=== PATIENT | female | born 1960 | race Hispanic/Latino ===

== ENCOUNTER → 2018-01-04 | Day surgery (SDC) | payer BC ==
[~2018-01-04] MED LIST: AUGMENTIN 500-1 EACH PO; ESTRING1 EACH; FENTANYL CITRATE/PF 100MCG/2 ML INJ ONE; GABAPENTIN300 MG PO; GLYBURIDE2.5 MG PO; HYDROCHLOROTHIA25 MG PO; INVOKANA PO; LEVAQUIN500 MG PO; LISINOPRIL; LISINOPRIL-HCT1 EAC1 PO; LISINOPRIL10 MG PO; METFORMIN HCL500 MG PO; METOPROLOL SUCC25 MG PO; MIDAZOLAM HCL 2 MG/2 ML VIAL ONE; OSPHENA PO; OXYTROL1 EA PO; PROPOFOL IV EMULSION 10 MG/ML 50 ML VIAL ONE; VESICARE5 MG PO; VITAMIN D250000 UNIT PO; ZINC50 MG PO
--- OUTSIDE RECORDS SUMMARY | 2018-04-20 13:29 | XMS REPORT ---
Author Author Rebecca Thorne [facility] eClinicalWorks Address Unknown Phone Unavailable Care Team Providers Care Office Services Manager Name Role Phone Rebecca Thorne Unavailable Allergies, Adverse Reactions, Alerts Substance Reaction Event Type N.K.D.A. Info Not Available Non Drug Allergy Problems Problem Type Condition Code Onset Dates Condition Status Problem Diabetes mellitus with hyperglycemia E11.65 Active Problem Type 2 diabetes mellitus with other diabetic kidney complication E11.29 Active Problem Sleep apnea G47.30 Active Problem BMI 40.0-44.9, adult Z68.41 Active Problem Severe obesity (BMI >=40) E66.01 Active Problem Essential hypertension I10 Active Problem Left wrist pain M25.532 Active Problem Neutrophilic leukocytosis D72.9 Active Problem Diabetic polyneuropathy associated with type 2 diabetes mellitus E11.42 Active Problem Chronic vaginitis N76.1 Active Problem Hyperlipidemia, unspecified E78.5 Active Problem Vitamin D deficiency E55.9 Active Assessment Dysuria R30.0 Active Assessment Right anterior shoulder pain M25.511 Active Problem Esophageal reflux K21.9 Active Problem Depressive disorder, not elsewhere classified F32.9 Active Problem Menopausal and female climacteric states N95.1 Active Problem History of laparoscopic adjustable gastric banding Z98.84 Active Problem Obesity E66.9 Active Problem Microalbuminuria R80.9 Active Medications Medication Code System Code Instructions Start Date End Date Status Dosage Vitamin D (Ergocalciferol) [facility] 08065772244 11578 Orally once per week Jun 04, 2017 Active 1 capsule Metformin HCl [facility] [address]-89 1000 MG Orally Twice a day November 06, 2016 Active 1 tablet with meals Potassium Chloride Gia ER [facility] 90569693535 10 MEQ Oral Active TAKE 1 TABLET BY MOUTH DAILY OneTouch Lancets [facility] [address]-24 0 in vitro use bid dx: 250.00 September Active as directed Gabapentin [facility] [address]-35 600 MG Active TAKE 1 TABLET BY MOUTH 3 TIMES A DAY GlyBURIDE [facility] 88207907875 2.5 MG Oral Active take 1 tablet by mouth 2 times daily (with meals) Ventolin HFA [facility] [address]-00 108 (90 Base) MCG/ACT Inhalation every 4 hrs Jun 18, 2016 Active 2 puffs as needed Lisinopril-Hydrochlorothiazide [facility] [address]-27 20-25 MG Orally twice a day February 03, 2017 Active 1 tablet OneTouch Ultra Test [facility] 0 - Active TEST EVERY DAY Naproxen [facility] [address]-94 500 MG Orally twice a day Feb 22, 2017 Mar 09, 2017 Active 1 tablet as needed Estring [facility] [address]-25 2 MG Vaginal Every 3 months Active 1 ring Osphena [facility] 18491618766 60 MG Oral Active TAKE 1 TABLET BY MOUTH DAILY Zetia [facility] [address]-84 10 MG Orally Once a day November 12, 2016 Active 1 tablet Wellbutrin XL [facility] 48451680275 150 MG Orally Once a day Active 1 tablet in the morning Bydureon [facility] 33035593578 2 MG Subcutaneous once per week Active INJECT 2 MG INTO THE SKIN EVERY 7 DAYS Pantoprazole Sodium [facility] 66802528431 40 MG Oral Active take 1 tablet by mouth every day OneTouch Ultra Test [facility] [address]-96 0 SQ use qd. E65.11 October 08, 2014 Active as directed Vital Signs Date/Time: Feb 22, 2017 BMI 42.28 Index Weight 262 lbs Height 66 in Cardiac Monitoring Heart Rate 77 /min Blood Pressure Diastolic 96 mm Hg Blood Pressure Systolic 142 mm Hg Results Name Result Date Reference Range Unit Abnormality Flag URINE AUTO W/O SCOPE ----Spec [place] 1.015 20170222 ----Turbidity clear 20170222 ----Glucose neg 20170222 ----Ketones trace 20170222 ----Blood neg 20170222 ----Bili small 20170222 ----Color yellow 20170222 ----pH 6.5 20170222 ----Leuk Est neg 20170222 ----Nitrite neg 20170222 ----Urobilinogen 0.2 20170222 ----Protein trace 20170222 Shoulder 2 view - Right Xray Summary Purpose eClinicalWorks Submission
--- OUTSIDE RECORDS SUMMARY | 2018-04-20 13:29 | XMS REPORT ---
Author Basil Gutierres Organization eClinicalWorks Address Unknown Phone Unavailable Care Team Providers Care Cardiac Sonographer Name Role Phone Basil Jean CP Unavailable Allergies, Adverse Reactions, Alerts Substance Reaction Event Type N.K.D.A. Info Not Available Non Drug Allergy Problems Problem Type Condition Code Onset Dates Condition Status Assessment Diabetic polyneuropathy associated with type 2 diabetes mellitus E11.42 Active Assessment Type 2 diabetes mellitus with other diabetic kidney complication E11.29 Active Assessment Neutrophilic leukocytosis D72.9 Active Assessment Sleep apnea G47.30 Active Problem Depressive disorder, not elsewhere classified F32.9 Active Assessment Microalbuminuria R80.9 Active Problem Esophageal reflux K21.9 Active Assessment History of laparoscopic adjustable gastric banding Z98.84 Active Problem History of laparoscopic adjustable gastric banding Z98.84 Active Problem Diabetes mellitus with hyperglycemia E11.65 Active Problem Microalbuminuria R80.9 Active Problem Severe obesity (BMI >=40) E66.01 Active Problem BMI 40.0-44.9, adult Z68.41 Active Assessment Hyperlipidemia, unspecified E78.5 Active Assessment Depressive disorder, not elsewhere classified F32.9 Active Problem Essential hypertension I10 Active Assessment Esophageal reflux K21.9 Active Problem Type 2 diabetes mellitus with other diabetic kidney complication E11.29 Active Problem Neutrophilic leukocytosis D72.9 Active Problem Diabetic polyneuropathy associated with type 2 diabetes mellitus E11.42 Active Problem Left wrist pain M25.532 Active Assessment Screening for colon cancer Z12.11 Active Assessment Screening for breast cancer Z12.39 Active Assessment Vitamin D deficiency E55.9 Active Assessment Diabetes mellitus with hyperglycemia E11.65 Active Problem Vitamin D deficiency E55.9 Active Problem Hyperlipidemia, unspecified E78.5 Active Assessment Encntr for general adult medical exam w/o abnormal findings Z00.00 Active Problem Obesity E66.9 Active Medications Medication Code System Code Instructions Start Date End Date Status Dosage Potassium Chloride Gia ER [facility] 21128127746 10 MEQ Active TAKE 1 TABLET BY MOUTH EVERY DAY Lisinopril-Hydrochlorothiazide [facility] 89512124019 20-25 MG Orally bid October Active 1 tablet Naproxen [facility] 29776552395 500 MG Orally twice a day Active 1 tablet as needed Bromfed DM [facility] 94613415356 30-2-10 MG/5ML Orally every 4-6 hrs Active 10 ml as needed Wellbutrin XL ND 49973286568 150 MG Orally Once a day Active 1 tablet in the morning Gabapentin [facility] 29686544722 600 MG Inactive TAKE 1 TABLET BY MOUTH 3 TIMES A DAY Trulicity 0.75mg ND 0 0.75mg/0.5mL Subcutaneously once a week Aug 12, 2017 Jun 09, 2018 Active 0.75mg/1 pen Estring [facility] 01356540281 2 MG Vaginal Every 3 months Active 1 ring Pantoprazole Sodium [facility] 55794963821 40 MG Oral Active take 1 tablet by mouth every day GlyBURIDE [facility] 88722372657 2.5 MG Oral bid Active take 1 tablet by mouth 2 times daily (with meals) OneTouch Lancets [facility] 80875589862 0 sq use bid dx: E11.65 October 08, 2014 Active as directed Lyrica [facility] 33487144352 50 mg Orally Three times a day November 11, 2017 Active 1 capsule Trulicity [facility] 15199565309 0.75 MG/0.5ML Active INJECT 0.75 MG ONCE A WEEK OneTouch Ultra Test [facility] 0 - Active TEST EVERY DAY Osphena [facility] 93983307146 60 MG Oral Active TAKE 1 TABLET BY MOUTH DAILY Ventolin HFA [facility] 30355539371 108 (90 Base) MCG/ACT Inhalation every 4 hrs Jun 18, 2016 Active 2 puffs as needed Metformin HCl [facility] 49433885828 1000 mg Orally bid September 27, 2017 Active 1 tablet with meals Ergocalciferol [facility] 38094244854 03821 UNIT Orally once per week Jun 09, 2018 Active 1 capsule Zetia [facility] 76452588571 10 MG Orally Once a day November 12, 2016 Active 1 tablet Hydrochlorothiazide [facility] 90641805790 25 MG Active TAKE 1 TABLET BY MOUTH EVERY DAY OneTouch Ultra Test [facility] 96324940071 0 SQ use qd. E65.11 October 08, 2014 Active as directed Vital Signs Date/Time: November 11, 2017 BMI 44.06 Index Weight 273 lbs Height 66 in Temperature 97.7 F Cardiac Monitoring Heart Rate 84 /min Blood Pressure Diastolic 102 mm Hg Blood Pressure Systolic 160 mm Hg Results No Known Results Summary Purpose eClinicalWorks Submission
--- OUTSIDE RECORDS SUMMARY | 2018-04-20 13:29 | XMS REPORT ---
Author Author Rebecca Thorne [facility] eClinicalWorks Address Unknown Phone Unavailable Care Team Providers Care Auricular Detoxification Specialist Name Role Phone Rebecca Thorne Unavailable Allergies, Adverse Reactions, Alerts Substance Reaction Event Type N.K.D.A. Info Not Available Non Drug Allergy Problems Problem Type Condition Code Onset Dates Condition Status Problem Diabetes mellitus with hyperglycemia E11.65 Active Problem Type 2 diabetes mellitus with other diabetic kidney complication E11.29 Active Problem Sleep apnea G47.30 Active Problem BMI 40.0-44.9, adult Z68.41 Active Assessment Left leg swelling M79.89 Active Problem Severe obesity (BMI >=40) E66.01 Active Problem Essential hypertension I10 Active Problem Left wrist pain M25.532 Active Problem Neutrophilic leukocytosis D72.9 Active Problem Diabetic polyneuropathy associated with type 2 diabetes mellitus E11.42 Active Problem Chronic vaginitis N76.1 Active Problem Hyperlipidemia, unspecified E78.5 Active Problem Vitamin D deficiency E55.9 Active Assessment Essential hypertension I10 Active Assessment SOB (shortness of breath) R06.02 Active Problem Esophageal reflux K21.9 Active Problem Depressive disorder, not elsewhere classified F32.9 Active Problem Menopausal and female climacteric states N95.1 Active Problem History of laparoscopic adjustable gastric banding Z98.84 Active Problem Obesity E66.9 Active Problem Microalbuminuria R80.9 Active Medications Medication Code System Code Instructions Start Date End Date Status Dosage Vitamin D (Ergocalciferol) [facility] 23865247654 07416 Orally once per week Jun 04, 2017 Active 1 capsule Osphena [facility] 53069973000 60 MG Oral Active TAKE 1 TABLET BY MOUTH DAILY OneTouch Ultra Test ND 0 - Active TEST EVERY DAY OneTouch Lancets [facility] [address]-43 0 in vitro use bid dx: 250.00 September Active as directed Potassium Chloride Gia ER [facility] 47482143982 10 MEQ Oral Active TAKE 1 TABLET BY MOUTH DAILY Lisinopril [facility] [address]-53 10 MG Inactive TAKE 1 TABLET BY MOUTH EVERY DAY Gabapentin [facility] 74697350629 600 MG Oral Active TAKE 1 TABLET BY MOUTH 3 TIMES DAILY Ventolin HFA [facility] [address]-80 108 (90 Base) MCG/ACT Inhalation every 4 hrs Jun 18, 2016 Active 2 puffs as needed Lisinopril-Hydrochlorothiazide [facility] [address]-48 20-25 MG Orally twice a day February 03, 2017 Active 1 tablet GlyBURIDE [facility] 34230099216 2.5 MG Oral Active take 1 tablet by mouth 2 times daily (with meals) Metformin HCl [facility] [address]-82 1000 MG Orally Twice a day November 06, 2016 Active 1 tablet with meals Estring [facility] [address]-58 2 MG Vaginal Every 3 months Active 1 ring Wellbutrin XL [facility] 78156081515 150 MG Orally Once a day Active 1 tablet in the morning OneTouch Ultra Test [facility] [address]-71 0 SQ use qd. E65.11 October 08, 2014 Active as directed Hydrochlorothiazide [facility] 00320046209 25 MG Inactive TAKE 1 TABLET BY MOUTH EVERY DAY Pantoprazole Sodium [facility] 88060390863 40 MG Oral Active take 1 tablet by mouth every day Bydureon [facility] 25855494624 2 MG Subcutaneous once per week Active INJECT 2 MG INTO THE SKIN EVERY 7 DAYS Zetia [facility] [address]-72 10 MG Orally Once a day November 12, 2016 Active 1 tablet Vital Signs Date/Time: February 03, 2017 BMI 42.77 Index Weight 265 lbs Height 66 in Cardiac Monitoring Heart Rate 76 /min Blood Pressure Diastolic 98 mm Hg Blood Pressure Systolic 162 mm Hg Results Name Result Date Reference Range Unit Abnormality Flag EKG Chest 2 views- Xray Summary Purpose eClinicalWorks Submission
--- OUTSIDE RECORDS SUMMARY | 2018-04-20 13:29 | XMS REPORT ---
Author Author Lynne Becker Organization eClinicalWorks Address Unknown Phone Unavailable Care Team Providers Care Warehouse Person Name Role Phone Lynne Becker CP Unavailable Allergies No Known Allergies Problems Problem Type Condition Code Onset Dates Condition Status Problem Microalbuminuria R80.9 Active Problem Neutrophilic leukocytosis D72.9 Active Problem Sleep apnea G47.30 Active Problem Severe obesity (BMI >=40) E66.01 Active Problem BMI 40.0-44.9, adult Z68.41 Active Problem Essential hypertension I10 Active Problem Left wrist pain M25.532 Active Problem Type 2 diabetes mellitus with other diabetic kidney complication E11.29 Active Problem Diabetic polyneuropathy associated with type 2 diabetes mellitus E11.42 Active Problem Chronic vaginitis N76.1 Active Problem Vitamin D deficiency E55.9 Active Problem Obesity E66.9 Active Problem Esophageal reflux K21.9 Active Problem Depressive disorder, not elsewhere classified F32.9 Active Problem Hyperlipidemia, unspecified E78.5 Active Problem History of laparoscopic adjustable gastric banding Z98.84 Active Problem Menopausal and female climacteric states N95.1 Active Problem Diabetes mellitus with hyperglycemia E11.65 Active Medications Medication Code System Code Instructions Start Date End Date Status Dosage Rosanna [facility] 87418433511 8-90 MG Orally Twice a day May 21, 2017 Aug 19, 2017 Active 2 tablets Results No Known Results Summary Purpose eClinicalWorks Submission
--- OUTSIDE RECORDS SUMMARY | 2018-04-20 13:29 | XMS REPORT ---
Author Author Basil Jean Organization eClinicalWorks Address Unknown Phone Unavailable Care Team Providers Care Junior Linux Systems Administrator Name Role Phone Basil Jean CP Unavailable Allergies No Known Allergies Problems [...] Diabetes mellitus with hyperglycemia E11.65 Active Medications No Known Medications Results No Known Results Summary Purpose eClinicalWorks Submission
--- OUTSIDE RECORDS SUMMARY | 2018-04-20 13:29 | XMS REPORT ---
Author Basil Gutierres Organization eClinicalWorks Address Unknown Phone Unavailable Care Team Providers Care Formal Wear Rental Clerk Name Role Phone Basil Jean CP Unavailable Allergies, Adverse Reactions, Alerts Substance Reaction Event Type N.K.D.A. Info Not Available Non Drug Allergy Problems Problem Type Condition Code Onset Dates Condition Status Problem Microalbuminuria R80.9 Active Problem Neutrophilic leukocytosis D72.9 Active Problem Sleep apnea G47.30 Active Problem Severe obesity (BMI >=40) E66.01 Active Assessment Diabetes mellitus with hyperglycemia E11.65 Active Problem BMI 40.0-44.9, adult Z68.41 Active Assessment URI with cough and congestion J06.9 Active Assessment Depressive disorder, not elsewhere classified F32.9 Active Problem Essential hypertension I10 Active Problem Left wrist pain M25.532 Active Problem Type 2 diabetes mellitus with other diabetic kidney complication E11.29 Active Problem Diabetic polyneuropathy associated with type 2 diabetes mellitus E11.42 Active Problem Chronic vaginitis N76.1 Active Problem Vitamin D deficiency E55.9 Active Problem Obesity E66.9 Active Assessment Obesity E66.9 Active Assessment Right ear pain H92.01 Active Problem Esophageal reflux K21.9 Active Problem Depressive disorder, not elsewhere classified F32.9 Active Problem Hyperlipidemia, unspecified E78.5 Active Problem History of laparoscopic adjustable gastric banding Z98.84 Active Problem Menopausal and female climacteric states N95.1 Active Problem Diabetes mellitus with hyperglycemia E11.65 Active Medications Medication Code System Code Instructions Start Date End Date Status Dosage Gabapentin [facility] 71074218205 600 MG Active TAKE 1 TABLET BY MOUTH 3 TIMES A DAY Lisinopril-Hydrochlorothiazide [facility] 57677770134 20-25 MG Orally twice a day Active 1 tablet OneTouch Lancets [facility] 85984584036 0 in vitro use bid dx: 250.00 October 08, 2014 Active as directed Azithromycin [facility] 59024921635 250 MG Orally Once a day Apr 15, 2017Apr Active 2 tablets on the first day, then 1 tablet daily for 4 days Naproxen [facility] 83310906523 500 MG Orally twice a day Active 1 tablet as needed Bydureon [facility] 24794031044 2 MG Subcutaneous once per week Inactive INJECT 2 MG INTO THE SKIN EVERY 7 DAYS Trulicity 0.75mg [facility] 70166744272 0.75mg/0.5mL Subcutaneously Once a week Active 0.75mg/1 pen Potassium Chloride Gia ER [facility] 63008152388 10 MEQ Active TAKE 1 TABLET BY MOUTH EVERY DAY OneTouch Ultra Test [facility] 12896411951 0 SQ use qd. E65.11 October 08, 2014 Active as directed Metformin HCl [facility] 78281083679 1000 MG Orally Twice a day November 06, 2016 Active 1 tablet with meals OneTouch Ultra Test [facility] 0 - Active TEST EVERY DAY Pantoprazole Sodium [facility] 01240704764 40 MG Oral Active take 1 tablet by mouth every day Vitamin D (Ergocalciferol) [facility] 69324458931 28739 Orally once per week Jun 04, 2017 Active 1 capsule Contrave [facility] 26496081603 8-90 MG Orally Twice a day Apr 15, 2017 May 15, 2017 Active 2 tablets Osphena [facility] 67207480470 60 MG Oral Active TAKE 1 TABLET BY MOUTH DAILY Hydrochlorothiazide [facility] 09196599956 25 MG Active TAKE 1 TABLET BY MOUTH EVERY DAY Zetia [facility] 97918520402 10 MG Orally Once a day November 12, 2016 Active 1 tablet Estring [facility] 92412712049 2 MG Vaginal Every 3 months Active 1 ring Ventolin HFA [facility] 34064439217 108 (90 Base) MCG/ACT Inhalation every 4 hrs Jun 18, 2016 Active 2 puffs as needed GlyBURIDE [facility] 40655014904 2.5 MG Oral Active take 1 tablet by mouth 2 times daily (with meals) Bromfed DM [facility] 48029815088 30-2-10 MG/5ML Orally every 4-6 hrs Active 10 ml as needed Wellbutrin XL ND 87752332158 150 MG Orally Once a day Inactive 1 tablet in the morning Vital Signs Date/Time: Apr 15, 2017 BMI 42.12 Index Weight 261 lbs Height 66 in Cardiac Monitoring Heart Rate 104 /min Blood Pressure Diastolic 68 mm Hg Blood Pressure Systolic 122 mm Hg Results Name Result Date Reference Range Unit Abnormality Flag DECADRON 1MGx4 Summary Purpose eClinicalWorks Submission
--- OUTSIDE RECORDS SUMMARY | 2018-04-20 13:29 | XMS REPORT ---
Author Author Basil Jean Organization eClinicalWorks Address Unknown Phone Unavailable Care Team Providers Care Chemical Processing Technician Name Role Phone Basil Jean CP Unavailable Allergies, Adverse Reactions, Alerts Substance Reaction Event Type N.K.D.A. Info Not Available Non Drug Allergy Problems Problem Type Condition Code Onset Dates Condition Status Problem History of laparoscopic adjustable gastric banding Z98.84 Active Assessment URI with cough and congestion J06.9 Active Problem Microalbuminuria R80.9 Active Assessment Essential hypertension I10 Active Problem Diabetes mellitus with hyperglycemia E11.65 Active Problem Type 2 diabetes mellitus with other diabetic kidney complication E11.29 Active Problem Sleep apnea G47.30 Active Problem BMI 40.0-44.9, adult Z68.41 Active Problem Severe obesity (BMI >=40) E66.01 Active Assessment Left elbow pain M25.522 Active Assessment BMI 40.0-44.9, adult Z68.41 Active Problem Essential hypertension I10 Active Assessment Vitamin D deficiency E55.9 Active Problem Left wrist pain M25.532 Active Problem Neutrophilic leukocytosis D72.9 Active Problem Diabetic polyneuropathy associated with type 2 diabetes mellitus E11.42 Active Problem Chronic vaginitis N76.1 Active Problem Hyperlipidemia, unspecified E78.5 Active Problem Vitamin D deficiency E55.9 Active Assessment Diabetes mellitus with hyperglycemia E11.65 Active Assessment Right ear pain H92.01 Active Problem Esophageal reflux K21.9 Active Problem Depressive disorder, not elsewhere classified F32.9 Active Problem Menopausal and female climacteric states N95.1 Active Problem Obesity E66.9 Active Medications Medication Code System Code Instructions Start Date End Date Status Dosage Bromfed DM [facility] [address]-04 30-2-10 MG/5ML Orally every 4-6 hrs Apr 08, 2017 Active 10 ml as needed Metformin HCl [facility] [address]-49 1000 MG Orally Twice a day November 06, 2016 Active 1 tablet with meals Ventolin HFA [facility] [address]-88 108 (90 Base) MCG/ACT Inhalation every 4 hrs Jun 18, 2016 Active 2 puffs as needed Zetia [facility] [address]-98 10 MG Orally Once a day November 12, 2016 Active 1 tablet Wellbutrin XL [facility] 03254741975 150 MG Orally Once a day Active 1 tablet in the morning Gabapentin [facility] 91893598630 600 MG Active TAKE 1 TABLET BY MOUTH 3 TIMES A DAY GlyBURIDE [facility] 28074755605 2.5 MG Oral Active take 1 tablet by mouth 2 times daily (with meals) Vitamin D (Ergocalciferol) [facility] 83005478276 51550 Orally once per week Jun 04, 2017 Active 1 capsule OneTouch Lancets [facility] [address]-25 0 in vitro use bid dx: 250.00 September Active as directed Pantoprazole Sodium [facility] 48572560877 40 MG Oral Active take 1 tablet by mouth every day Estring [facility] [address]-22 2 MG Vaginal Every 3 months Active 1 ring Potassium Chloride Gia ER [facility] [address]-27 10 MEQ Active TAKE 1 TABLET BY MOUTH EVERY DAY Naproxen [facility] 34978370912 500 MG Orally twice a day Active 1 tablet as needed Trulicity 0.75mg [facility] 8659[address]55[address]-62 0.75mg/0.5mL Subcutaneously Once a week Apr 08, 2017 Aug 06, 2017 Active 0.75mg/1 pen OneTouch Ultra Test [facility] [address]-87 0 SQ use qd. E65.11 October 08, 2014 Active as directed Hydrochlorothiazide [facility] [address]-47 25 MG Active TAKE 1 TABLET BY MOUTH EVERY DAY Osphena [facility] 15032982225 60 MG Oral Active TAKE 1 TABLET BY MOUTH DAILY Bydureon [facility] 80203931444 2 MG Subcutaneous once per week Inactive INJECT 2 MG INTO THE SKIN EVERY 7 DAYS OneTouch Ultra Test [facility] 0 - Active TEST EVERY DAY Lisinopril-Hydrochlorothiazide [facility] 89269893469 20-25 MG Orally twice a day Active 1 tablet Vital Signs Date/Time: Apr 08, 2017 BMI 41.80 Index Weight 259 lbs Height 66 in Cardiac Monitoring Heart Rate 94 /min Blood Pressure Diastolic 70 mm Hg Blood Pressure Systolic 110 mm Hg Results No Known Results Summary Purpose eClinicalWorks Submission
--- OUTSIDE RECORDS SUMMARY | 2018-04-20 13:29 | XMS REPORT ---
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 Active Assessment Knee pain 719.46 Active Assessment Diabetes mellitus without mention of complication, type II or unspecified type, not stated as uncontrolled 250.00 Active Problem Menopause V49.81 Active Problem Vitamin d deficiency 268.9 Active Problem Obesity 278.00 Active Problem Diabetes mellitus without mention of complication, type II or unspecified type, not stated as uncontrolled 250.00 Active Problem 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 Active Problem HLD (hyperlipidemia) 272.4 Active Problem Microalbuminuria 791.0 Active Assessment HLD (hyperlipidemia) 272.4 Active Assessment Vitamin d deficiency 268.9 Active Assessment Burn 949.0 Active Assessment Menopause V49.81 Active Assessment Microalbuminuria 791.0 Active Assessment Obesity 278.00 Active Medications Medication Code System Code Instructions Start Date End Date Status Dosage Lisinopril [facility] [place] [address]-84 5 MG Orally Once a day January 26, 2013 Active 1 tablet VESIcare [facility] [place] [address]-95 5 MG Orally Once a day Active 1 tablet Vitamin D [facility] [place] [address]-59 15240 UNIT Orally once per week January 26, 2013 May 26, 2013 Active 1 capsule DexPak Jr 10 Day [facility] [place] [address]-05 1.5 MG Orally as directed Mar 07, 2013 Mar 17, 2013 Active as directed Estring [facility] [place] [address]-33 2 MG Vaginal Every 3 months Active 1 ring Proventil HFA [facility] [place] [address]-62 108 (90 Base) MCG/ACT Inhalation every 4 hrs Active 2 puffs as needed Asmanex 14 Metered Doses [facility] [place] [address]-02 220 MCG/INH Inhalation Once a day January 23, 2013 Active 1 puff in the evening Brianna [facility] [place] [address]-63 1 % Externally Once a day Mar 07, 2013Feb Active 1 application to affected area Social History Social History Element Qualifiers Date Reported Tobacco Use: . Are you a: former smoker 1 1/2 years Mar 07, 2013 Marital Status: . Arturo Bhakta Mar 07, 2013 Do you drink alcohol? . 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
--- OUTSIDE RECORDS SUMMARY | 2018-04-20 13:29 | XMS REPORT ---
Author Author Alma Lima [facility] eClinicalWorks Address Unknown Phone Unavailable Care Team Providers Care Hand Clipper Name Role Phone Alma Lima Unavailable Allergies, Adverse Reactions, Alerts Substance Reaction Event Type N.K.D.A. Info Not Available Non Drug Allergy Problems Problem Type Condition Code Onset Dates Condition Status Problem Diabetes mellitus with hyperglycemia E11.65 Active Problem Type 2 diabetes mellitus with other diabetic kidney complication E11.29 Active Problem Sleep apnea G47.30 Active Problem BMI 40.0-44.9, adult Z68.41 Active Assessment Upper respiratory tract infection, unspecified type J06.9 Active Problem Severe obesity (BMI >=40) E66.01 [...] Instructions Start Date End Date Status Dosage Hydrochlorothiazide [facility] 03818103966 25 MG Active TAKE 1 TABLET BY MOUTH EVERY DAY Zetia [facility] [address]-11 10 MG Orally Once a day November 12, 2016 Active 1 tablet Ventolin HFA [facility] [address]-38 108 (90 Base) MCG/ACT Inhalation every 4 hrs Jun 18, 2016 Active 2 puffs as needed Wellbutrin XL ND 56698998603 150 MG Orally Once a day Active 1 tablet in the morning GlyBURIDE [facility] 66145793677 2.5 MG Oral Active take 1 tablet by mouth 2 times daily (with meals) Pantoprazole Sodium [facility] 61521061980 40 MG Oral Active take 1 tablet by mouth every day Tramadol HCl [facility] 11322619548 50 MG Oral Active (Schedule IV Drug) TAKE 1 TABLET BY MOUTH EVERY 8 HOURS NEEDED FOR PAIN Lisinopril [facility] [address]-55 10 MG Active TAKE 1 TABLET BY MOUTH EVERY DAY Potassium Chloride Gia ER [facility] 39306746582 10 MEQ Oral Active TAKE 1 TABLET BY MOUTH DAILY OneTouch Ultra Test [facility] [address]-80 0 SQ use qd. E65.11 October 08, 2014 Active as directed Metformin HCl [facility] [address]-18 1000 MG Orally Twice a day November 06, 2016 Active 1 tablet with meals Vitamin D (Ergocalciferol) [facility] 55679323879 50967 Orally once per week Jun 04, 2017 Active 1 capsule Gabapentin [facility] 68762165256 600 MG Oral Active TAKE 1 TABLET BY MOUTH 3 TIMES DAILY OneTouch Ultra Test [facility] 0 - Active TEST EVERY DAY Albuterol Sulfate HFA [facility] [address]-98 108 (90 Base) MCG/ACT Inhalation every 4 hrs Apr 17, 2014 Active 2 puffs as needed Bydureon [facility] 06420326026 2 MG Subcutaneous once per week Active INJECT 2 MG INTO THE SKIN EVERY 7 DAYS OneTouch Lancets [facility] [address]-12 0 in vitro use bid dx: 250.00 September Active as directed Levaquin [facility] [address]-26 500 MG Orally Once a day December 25, 2016December Active 1 tablet Estring [facility] [address]-67 2 MG Vaginal Every 3 months Active 1 ring Osphena [facility] 92350777674 60 MG Oral Active TAKE 1 TABLET BY MOUTH DAILY Vital Signs Date/Time: December 25, 2016 BMI 41.48 Index Weight 257 lbs Height 66 in Temperature 97.7 F Cardiac Monitoring Heart Rate 76 /min Blood Pressure Diastolic 92 mm Hg Blood Pressure Systolic 138 mm Hg Results Name Result Date Reference Range Unit Abnormality Flag PULSE OXIMETRY CBC ----Platelets 275 20161225 ----NEUTROPHILS MID; 0.8, LYM: 2.0, GRA:7.2 20161225 ----MCHC 32.3 20161225 ----MCH 30.0 20161225 ----MCV 92.7 20161225 ----WBC 10.0 20161225 ----RDW 14.1 20161225 ----RBC 5.27 20161225 ----Hemoglobin 15.8 20161225 ----Hematocrit 48.9 20161225 Chest 2 views- Xray Summary Purpose eClinicalWorks Submission
--- OUTSIDE RECORDS SUMMARY | 2018-04-20 13:29 | XMS REPORT ---
Author Author Lynne Becker Organization eClinicalWorks Address Unknown Phone Unavailable Care Team Providers Care Engraver Picture Name Role Phone Lynne Becker CP Unavailable [...]
--- OUTSIDE RECORDS SUMMARY | 2018-04-20 13:29 | XMS REPORT ---
Author Author Rebecca Thorne [facility] eClinicalWorks Address Unknown Phone Unavailable Care Team Providers Care Routing Machine Operator Name Role Phone Rebecca Thorne Unavailable Allergies, Adverse Reactions, Alerts Substance Reaction Event Type N.K.D.A. Info Not Available Non Drug Allergy Problems Problem Type Condition Code Onset Dates Condition Status Problem Diabetes mellitus with hyperglycemia E11.65 Active Problem Type 2 diabetes mellitus with other diabetic kidney complication E11.29 Active Problem Sleep apnea G47.30 Active Problem BMI 40.0-44.9, adult Z68.41 Active Assessment Diabetes mellitus with hyperglycemia E11.65 Active Problem Severe obesity (BMI >=40) E66.01 Active Assessment Vitamin D deficiency E55.9 Active Assessment Essential hypertension I10 Active Problem Essential hypertension I10 Active Problem Left wrist pain M25.532 Active Problem Neutrophilic leukocytosis D72.9 Active Problem Diabetic polyneuropathy associated with type 2 diabetes mellitus E11.42 Active Problem Chronic vaginitis N76.1 Active Problem Hyperlipidemia, unspecified E78.5 Active Problem Vitamin D deficiency E55.9 Active Assessment Hyperlipidemia, unspecified E78.5 Active Assessment Encounter to discuss test results Z71.89 Active Problem Esophageal reflux K21.9 Active Problem Depressive disorder, not elsewhere classified F32.9 Active Problem Menopausal and female climacteric states N95.1 Active Problem History of laparoscopic adjustable gastric banding Z98.84 Active Problem Obesity E66.9 Active Problem Microalbuminuria R80.9 Active Medications Medication Code System Code Instructions Start Date End Date Status Dosage Hydrochlorothiazide [facility] 10633660794 25 MG Active TAKE 1 TABLET BY MOUTH EVERY DAY Atorvastatin Calcium [facility] [address]-81 80 MG Orally Once a day Inactive 1 tablet Zetia [facility] [address]-56 10 MG Orally Once a day November 12, 2016 Active 1 tablet Tramadol HCl [facility] 39449212056 50 MG Oral Active (Schedule IV Drug) TAKE 1 TABLET BY MOUTH EVERY 8 HOURS NEEDED FOR PAIN Bydureon [facility] 45975318865 2 MG Subcutaneous once per week Active INJECT 2 MG INTO THE SKIN EVERY 7 DAYS Lisinopril [facility] [address]-26 10 MG Active TAKE 1 TABLET BY MOUTH EVERY DAY Pantoprazole Sodium [facility] 85735297258 40 MG Oral Active take 1 tablet by mouth every day Estring [facility] [address]-03 2 MG Vaginal Every 3 months Active 1 ring Metformin HCl [facility] [address]-68 1000 MG Orally Twice a day November 06, 2016 Active 1 tablet with meals Vitamin D (Ergocalciferol) [facility] 42292024334 74273 Orally once per week Jun 04, 2017 Active 1 capsule Gabapentin [facility] 34458003644 600 MG Oral Active TAKE 1 TABLET BY MOUTH 3 TIMES DAILY Ventolin HFA [facility] [address]-40 108 (90 Base) MCG/ACT Inhalation every 4 hrs Jun 18, 2016 Active 2 puffs as needed OneTouch Lancets [facility] [address]-22 0 in vitro use bid dx: 250.00 September Active as directed OneTouch Ultra Test [facility] [address]-24 0 SQ use qd. E65.11 October 08, 2014 Active as directed Osphena [facility] 80882348817 60 MG Oral Active TAKE 1 TABLET BY MOUTH DAILY GlyBURIDE [facility] 08764044690 2.5 MG Oral Active take 1 tablet by mouth 2 times daily (with meals) Wellbutrin XL [facility] 40739250356 150 MG Orally Once a day Active 1 tablet in the morning Potassium Chloride Gia ER [facility] 56846734872 10 MEQ Oral Active TAKE 1 TABLET BY MOUTH DAILY Albuterol Sulfate HFA [facility] [address]-87 108 (90 Base) MCG/ACT Inhalation every 4 hrs Apr 17, 2014 Active 2 puffs as needed Vital Signs Date/Time: November 12, 2016 BMI 42.28 Index Weight 262 lbs Height 66 in Cardiac Monitoring Heart Rate 86 /min Blood Pressure Diastolic 84 mm Hg Blood Pressure Systolic 136 mm Hg Results No Known Results Summary Purpose eClinicalWorks Submission
--- OUTSIDE RECORDS SUMMARY | 2018-04-20 13:29 | XMS REPORT ---
Author Author Jody Jensen [facility] eClinicalWorks Address Unknown Phone Unavailable Care Team Providers Care Plate Inspector Name Role Phone Jody Jensen CP Unavailable Allergies, Adverse Reactions, Alerts Substance Reaction Event Type penicillin Info Not Available Drug Allergy Encounters Encounter Location Date bladder [facility] October 25, 2013 KNEE PAIN [facility] Mar 07, 2013 RESULTS [facility] Mar 30, 2013 Unknown [facility] Jun 01, 2013 Problems Problem Type Condition ICD-9 Code Onset Dates Condition Status Assessment Obesity 278.00 Active Assessment UTI (lower urinary tract infection) 599.0 Active Assessment 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 Active Problem Obesity 278.00 Active Problem Menopause V49.81 Active Problem 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 Problem Microalbuminuria 791.0 Active Problem 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 Active Problem Vitamin d deficiency 268.9 Active Problem HLD (hyperlipidemia) 272.4 Active Assessment Depression screen V79.0 Active Assessment Depression 311 Active Assessment BMI 36.0-36.9,adult V85.36 Active Assessment Microalbuminuria 791.0 Active Assessment HLD (hyperlipidemia) 272.4 Active Assessment HTN (hypertension), benign 401.1 Active Assessment Vitamin d deficiency 268.9 Active Assessment 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 Assessment Menopause V49.81 Active Medications Medication Code System Code Instructions Start Date End Date Status Dosage Vitamin D (Ergocalciferol) [facility] [address]-77 59934 UNIT Orally once per week Jun 01, 2013 November 28, 2013 Active 1 capsule NO OTC meds taken MULTUM 61595 Active Unknown Lisinopril [facility] [address]-79 10 MG Orally Once a day Active 1 tablet VESIcare [facility] [address]-97 5 MG Orally Once a day Active 1 tablet Estring [facility] [address]-67 2 MG Vaginal Every 3 months Active 1 ring Macrobid [facility] [address]-25 100 mg Orally every 12 hrs October 25, 2013 October 30, 2013 Active 1 capsule with food Effexor XR [facility] [address]-54 37.5 MG Orally Once a day October 25, 2013 Active 1 capsule with food Social History Social History Element Qualifiers Date Reported Tobacco Use: . Are you a: former smoker 1 1/2 years October 25, 2013 Marital Status: . Arturo Bhakta October 25, 2013 Do you drink alcohol? . 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, 2013 Family history Qualifier Description Comment Date Reported Father alive heart disease, diabetes mellitus October 25, 2013 Mother alive diabetes, hypertension October 25, 2013 Siblings sister- DM October 25, 2013 Vital Signs Date/Time: October 25, 2013 Weight 229 lbs Height 66 inches Cardiac Monitoring Heart Rate 74 Beats per Minute Blood Pressure Diastolic 96 mm Hg Blood Pressure Systolic 142 mm Hg Results URINE AUTO W/O SCOPE Spec [place](- ) 1.010 Turbidity(- ) cloudy* Glucose(- ) negative Ketones(- ) trace* Blood(- ) trace* Bili(- ) moderate* Color(- ) yellow pH(- ) 6.5* Leuk Est(- ) negative Nitrite(- ) positive* Urobilinogen(- ) 0.2 Protein(- ) negative Summary Purpose eClinicalWorks Submission
--- OUTSIDE RECORDS SUMMARY | 2018-04-20 13:29 | XMS REPORT ---
Author Author Basil Jean Organization eClinicalWorks Address Unknown Phone Unavailable Care Team Providers Care Patternmaker Wood Name Role Phone Basil Jean CP Unavailable [...] Problem Vitamin D deficiency E55.9 Active Assessment Localized edema R60.0 Active Problem Esophageal reflux K21.9 Active Problem Depressive disorder, not elsewhere classified F32.9 Active Problem Menopausal and female climacteric states N95.1 Active Problem History of laparoscopic adjustable gastric banding Z98.84 Active Problem Obesity E66.9 Active Problem Microalbuminuria R80.9 Active Medications Medication Code System Code Instructions Start Date End Date Status Dosage Gabapentin [facility] 78800060726 600 MG Oral Active TAKE 1 TABLET BY MOUTH 3 TIMES DAILY Ventolin HFA [facility] [address]-85 108 (90 Base) MCG/ACT Inhalation every 4 hrs Jun 18, 2016 Active 2 puffs as needed Lisinopril [facility] [address]-84 10 MG Active TAKE 1 TABLET BY MOUTH EVERY DAY Metformin HCl [facility] [address]-66 1000 MG Orally Twice a day November 06, 2016 Active 1 tablet with meals Wellbutrin XL [facility] 67581117957 150 MG Orally Once a day Active 1 tablet in the morning OneTouch Ultra Test [facility] [address]-13 0 SQ use qd. E65.11 October 08, 2014 Active as directed Albuterol Sulfate HFA [facility] [address]-63 108 (90 Base) MCG/ACT Inhalation every 4 hrs Apr 17, 2014 Active 2 puffs as needed Zetia [facility] [address]-21 10 MG Orally Once a day November 12, 2016 Active 1 tablet OneTouch Lancets [facility] [address]-06 0 in vitro use bid dx: 250.00 September Active as directed Tramadol HCl [facility] 13775598888 50 MG Oral Active (Schedule IV Drug) TAKE 1 TABLET BY MOUTH EVERY 8 HOURS NEEDED FOR PAIN Pantoprazole Sodium [facility] 90314126135 40 MG Oral Active take 1 tablet by mouth every day Potassium Chloride Gia ER [facility] 25432038107 10 MEQ Oral Active TAKE 1 TABLET BY MOUTH DAILY Estring [facility] [address]-84 2 MG Vaginal Every 3 months Active 1 ring Bydureon [facility] 40784455524 2 MG Subcutaneous once per week Active INJECT 2 MG INTO THE SKIN EVERY 7 DAYS Hydrochlorothiazide [facility] 85662933719 25 MG Active TAKE 1 TABLET BY MOUTH EVERY DAY Vitamin D (Ergocalciferol) [facility] 29170670287 81275 Orally once per week Jun 04, 2017 Active 1 capsule Osphena [facility] 87844545136 60 MG Oral Active TAKE 1 TABLET BY MOUTH DAILY GlyBURIDE [facility] 96338175031 2.5 MG Oral Active take 1 tablet by mouth 2 times daily (with meals) Results No Known Results Summary Purpose eClinicalWorks Submission
--- OUTSIDE RECORDS SUMMARY | 2018-04-20 13:29 | XMS REPORT ---
Author Author Jody Jensen [facility] eClinicalWorks Address Unknown Phone Unavailable Care Team Providers Care Cylinder Sander Operator Name Role Phone Jody Jensen Unavailable Allergies, Adverse Reactions, Alerts Substance Reaction Event Type penicillin Info Not Available Drug Allergy Encounters Encounter Location Date KNEE PAIN [facility] Mar 07, 2013 RESULTS [facility] Mar 30, 2013 Problems Problem Type Condition ICD-9 Code Onset Dates Condition Status Assessment 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 [address]-18 5 MG Orally Once a day Active 1 tablet Lisinopril [facility] [address]-95 5 MG Orally Once a day Active 1 tablet Proventil HFA [facility] [address]-48 108 (90 Base) MCG/ACT Inhalation every 4 hrs Active 2 puffs as needed Vitamin D [facility] [address]-87 18761 UNIT Orally once per week Active 1 capsule Estring [facility] [address]-25 2 MG Vaginal Every 3 months Active 1 ring Asmanex 14 Metered Doses [facility] [address]-96 220 MCG/INH Inhalation Once a day Active 1 puff in the evening Social History Social History Element Qualifiers Date Reported Tobacco Use: . Are you a: former smoker 1 1/2 years Mar 30, 2013 Marital Status: . Arturo Bhakta Mar 30, 2013 Do you drink alcohol? . 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
--- OUTSIDE RECORDS SUMMARY | 2018-04-20 13:29 | XMS REPORT ---
Author Author Basil Jean Organization eClinicalWorks Address Unknown Phone Unavailable Care Team Providers Care Manager Qa Name Role Phone Basil Jean CP Unavailable Allergies No Known Allergies Problems Problem Type Condition Code Onset Dates Condition Status Problem History of laparoscopic adjustable gastric banding Z98.84 Active Problem Diabetes mellitus with hyperglycemia E11.65 Active Problem Microalbuminuria R80.9 Active Problem Severe obesity (BMI >=40) E66.01 Active Problem BMI 40.0-44.9, adult Z68.41 Active Problem Essential hypertension I10 Active Problem Type 2 diabetes mellitus with other diabetic kidney complication E11.29 Active Problem Neutrophilic leukocytosis D72.9 Active Problem Diabetic polyneuropathy associated with type 2 diabetes mellitus E11.42 Active Problem Left wrist pain M25.532 Active Assessment Diabetic polyneuropathy associated with type 2 diabetes mellitus E11.42 Active Problem Vitamin D deficiency E55.9 Active Problem Hyperlipidemia, unspecified E78.5 Active Assessment Diabetes mellitus with hyperglycemia E11.65 Active Problem Depressive disorder, not elsewhere classified F32.9 Active Problem Obesity E66.9 Active Problem Esophageal reflux K21.9 Active Medications Medication Code System Code Instructions Start Date End Date Status Dosage Trulicity 0.75mg NDC 0 0.75mg/0.5mL Subcutaneously once a week Aug 12, 2017 Active 0.75mg/1 pen Lyrica NDC 72739412370 50 mg Orally Three times a day November 11, 2017 Active 1 capsule Results No Known Results Summary Purpose eClinicalWorks Submission
--- OUTSIDE RECORDS SUMMARY | 2018-04-20 13:29 | XMS REPORT ---
Author Author Lynne Beltran [facility] eClinicalWorks Address Unknown Phone Unavailable Care Team Providers Care Eeo Officer Name Role Phone Lynne Beltran CP Unavailable Encounters Encounter Location Date KNEE PAIN [facility] Mar 07, 2013 RESULTS [facility] Mar 30, 2013 Unknown [facility] Jun 01, 2013 Problems Problem Type Condition ICD-9 Code Onset Dates Condition Status Problem Menopause V49.81 Active Problem Vitamin d deficiency 268.9 Active Problem Obesity 278.00 Active Problem Diabetes mellitus without mention of complication, type II or unspecified type, not stated as uncontrolled 250.00 Active Problem 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 Active Problem HLD (hyperlipidemia) 272.4 Active Problem Microalbuminuria 791.0 Active Medications Medication Code System Code Instructions Start Date End Date Status Dosage VESIcare [facility] [address]-42 5 MG Orally Once a day Active 1 tablet Lisinopril [facility] [address]-65 5 MG Orally Once a day Active 1 tablet Vitamin D (Ergocalciferol) [facility] [address]-24 68095 UNIT Orally once per week Jun 01, 2013 November 28, 2013 Active 1 capsule Social History Social History Element Qualifiers Date Reported Tobacco Use: . Are you a: former smoker 1 1/2 years Mar 30, 2013 Marital Status: . Arturo Bhakta Mar 30, 2013 Do you drink alcohol? . 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
--- OUTSIDE RECORDS SUMMARY | 2018-04-20 13:30 | XMS REPORT ---
Author Author Lynne Beltran [facility] eClinicalWorks Address Unknown Phone Unavailable Care Team Providers Care Contract Driver Name Role Phone Lynne Beltran CP Unavailable Encounters Encounter Location Date bladder [facility] October 25, 2013 urgent care follow-up [facility] Mar 29, 2014 Unknown [facility] Apr 11, 2014 Peer to Peer [facility] Apr 12, [address] [facility] Mar 07, 2013 RESULTS [facility] Mar 30, [address] [facility] Jun 01, [address] 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 Are you a: former smoker 1 1/2 years Apr 17, 2014 Marital Status: . Arturo Bhakta Apr 17, 2014 Do you drink alcohol? . Status: No Apr 17, 2014 Occupation: . Homemaker Apr 17, 2014 Family history Qualifier Description Comment Date Reported Father alive heart disease, diabetes mellitus Apr 17, 2014 Mother alive diabetes, hypertension Apr 17, 2014 Siblings sister- DM Apr 17, 2014 Summary Purpose eClinicalWorks Submission
--- OUTSIDE RECORDS SUMMARY | 2018-04-20 13:30 | XMS REPORT ---
Author Author Marcellus Canas Organization eClinicalWorks Address Unknown Phone Unavailable Care Team Providers Care Microbiology Manager Name Role Phone Marcellus Canas CP Unavailable Allergies, Adverse Reactions, Alerts Substance Reaction Event Type penicillin Info Not Available Drug Allergy Encounters Encounter Location Date bladder [facility] October 25, 2013 urgent care follow-up [facility] Mar 29, 2014 KNEE PAIN [facility] Mar 07, 2013 RESULTS [facility] Mar 30, 2013 Unknown [facility] Jun 01, 2013 Problems Problem Type Condition ICD-9 Code Onset Dates Condition Status Assessment 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 Problem 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 Active Assessment Pneumonia 486 Active Assessment History of laparoscopic adjustable gastric banding V45.86 Active Problem 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 Problem Obesity 278.00 Active Problem History of laparoscopic adjustable gastric banding V45.86 Active Problem HLD (hyperlipidemia) 272.4 Active Problem Microalbuminuria 791.0 Active Problem Menopause 627.2 Active Problem Vitamin d deficiency 268.9 Active Medications Medication Code System Code Instructions Start Date End Date Status Dosage Lisinopril [facility] [address]-19 10 MG Orally Once a day December 22, 2013 Active 1 tablet VESIcare [facility] [address]-21 5 MG Orally Once a day December 22, 2013 Active 1 tablet Ibuprofen [facility] [address]-94 100 MG/5ML Orally every 6 hrs Mar 29, 2014 Apr 08, 2014 Active 10 ml as needed [facility] [address]-34 500 MG Orally Once a day Active 1 tablet [facility] [address]-92 2 MG Vaginal Every 3 months Active 1 ring Effexor XR [facility] [address]-53 37.5 MG Orally Once a day October 25, 2013 Active 1 capsule with food Social History Social History Element Qualifiers Date Reported Tobacco Use: . Are you a: former smoker 1 1/2 years Mar 29, 2014 Marital Status: . Arturo Bhakta Mar 29, 2014 Do you drink alcohol? . 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
--- OUTSIDE RECORDS SUMMARY | 2018-04-20 13:30 | XMS REPORT ---
Author Author Rogers Snider [facility] eClinicalWorks Address Unknown Phone Unavailable Care Team Providers Care Vacuum Extractor Operator Name Role Phone Rogers Snider Unavailable Allergies, Adverse Reactions, Alerts Substance Reaction Event Type penicillin Info Not Available Drug Allergy Encounters Encounter Location Date bladder [facility] October 25, 2013 urgent care follow-up [facility] Mar 29, 2014 Unknown [facility] Apr 11, 2014 Peer to Peer [facility] Apr 12, 2014 KNEE PAIN [facility] Mar 07, 2013 RESULTS [facility] Mar 30, 2013 Unknown [facility] Jun 01, 2013 Unknown [facility] October 03, 2014 1 week follow up [facility] Apr 17, 2014 Test results [facility] Apr ECHO / DOMI [facility] November 01, 2015 TMT / DOMI [facility] November Physical [facility] October 21, 2015 Lab results [facility] October 29, 2015 Unknown [facility] October 08, 2014 Unknown [facility] October 09, 2014 Problems Problem Type Condition ICD-9 Code Onset Dates Condition Status Problem Menopausal and female climacteric states N95.1 Active Problem Esophageal reflux K21.9 Active Problem Obesity E66.9 Active Problem H/O leukocytosis Z86.2 Active Problem Diabetes mellitus with hyperglycemia E11.65 Active Problem Leukocytosis D72.829 Active Problem DM w/o complication type II E11.9 Active Problem Depressive disorder, not elsewhere classified F32.9 Active Problem Microalbuminuria R80.9 Active Problem History of laparoscopic adjustable gastric banding Z98.84 Active Assessment Abnormal stress test R94.39 Active Assessment Abnormal EKG R94.31 Active Problem Hyperlipidemia, unspecified E78.5 Active Problem Vitamin D deficiency E55.9 Active Medications Medication Code System Code Instructions Start Date End Date Status Dosage Estring [facility] [address]-53 2 MG Vaginal Every 3 months Active 1 ring IBU-200 [facility] [address]-54 200 MG Orally every 6 hrs Active 1 tablet as needed Tramadol HCl [facility] 28839241826 50 MG Oral Active (Schedule IV Drug) TAKE 1 TABLET BY MOUTH EVERY 8 HOURS NEEDED FOR PAIN Osphena [facility] 50671098777 60 MG Oral Active TAKE 1 TABLET BY MOUTH DAILY GlyBURIDE [facility] 88389278249 2.5 MG Oral Active TAKE 1 TABLET BY MOUTH 2 TIMES DAILY (WITH MEALS) Wellbutrin XL [facility] [address]-16 150 MG Orally Once a day October 21, 2015 Active 1 tablet in the morning Voltaren [facility] 71653323530 1 % Transdermal Active APPLY TO PAINFUL REGION OVER BUTTOCK UP TO 2 TIMES A DAY NEEDED. Bydureon [facility] 43561431326 2 MG Subcutaneous Active INJECT 2 MG INTO THE SKIN EVERY 7 DAYS OneTouch Ultra Test [facility] [address]-92 0 SQ use qd. E65.11 October 08, 2014 Active as directed Atorvastatin Calcium [facility] [address]-34 80 MG Orally Once a day Active 1 tablet VESIcare [facility] [address]-89 5 MG Orally Once a day December 22, 2013 Active 1 tablet Potassium Chloride Gia ER [facility] 82197952288 10 MEQ Oral Active TAKE 1 TABLET BY MOUTH DAILY OneTouch Lancets [facility] [address]-91 0 in vitro use bid dx: 250.00 October 08, 2014 Active as directed Gabapentin [facility] [address]-39 300 MG Oral Active take 1 capsule by mouth at bedtime Lisinopril [facility] [address]-90 10 mg Orally daily Active 1 tablet Xigduo XR [facility] [address]-62 10-1000 MG Orally Once a day October 29, 2015 May 26, 2016 Active 1 tablet Vitamin D (Ergocalciferol) [facility] 13232709077 49095 Orally once per week Active 1 capsule Pantoprazole Sodium [facility] 92897927800 40 MG Oral Active TAKE 1 TABLET BY MOUTH EVERY DAY Albuterol Sulfate HFA [facility] [address]-90 108 (90 Base) MCG/ACT Inhalation every 4 hrs Apr 17, 2014 Active 2 puffs as needed Hydrochlorothiazide [facility] [address]-43 25 MG Active TAKE 1 TABLET BY MOUTH EVERY DAY Social History Social History Element Qualifiers Date Reported Tobacco Use: . Are you a: former smoker 1 1/2 years December 09, 2015 Do you have pets? . Status: Yes, Type: dog(s) December 09, 2015 Marital Status: . Arturo Bhakta December 09, 2015 Caffeine intake? . Status: Yes, What type: Coffee, Tea, Soft Drinks December 09, 2015 Do you exercise? . Answer: No December 09, 2015 Do you drink alcohol? . 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, 2015 Family history Qualifier Description Comment Date Reported Maternal Grandmother Comment not available December 09, 2015 Paternal Grandmother Comment not available December 09, 2015 Siblings sister- DM December 09, 2015 Maternal Grandfather Comment not available December 09, 2015 Children Comment not available December 09, 2015 Father alive heart disease, diabetes mellitus December 09, 2015 Paternal Grandfather Comment not available December 09, 2015 Mother alive diabetes, hypertension December 09, 2015 Other: Comment not available December 09, 2015 Vital Signs Date/Time: December 09, 2015 Weight 276 lbs Height 66 in Blood Pressure Diastolic 76 mm Hg Blood Pressure Systolic 114 mm Hg Summary Purpose eClinicalWorks Submission
--- OUTSIDE RECORDS SUMMARY | 2018-04-20 13:30 | XMS REPORT ---
Author Author Melba Rojas eClinicalWorks Address Unknown Phone Unavailable Care Team Providers Care Line Analyst Name Role Phone Melba Rojas CP Unavailable Allergies, Adverse Reactions, Alerts Substance Reaction Event Type penicillin Info Not Available Drug Allergy Encounters Encounter Location Date bladder [facility] October 25, 2013 urgent care follow-up [facility] Mar 29, 2014 Unknown [facility] Apr 11, 2014 Peer to Peer [facility] Apr 12, 2014 KNEE PAIN [facility] Mar 07, 2013 RESULTS [facility] Mar 30, 2013 Unknown [facility] Jun 01, [address] [facility] October 03, 2014 1 week follow up [facility] Apr 17, 2014 Test results [facility] Apr CHEST CONGESTION [facility] December 19, 2015 PT SAYS SHE IS HAVING CHEST DISCOMFORT FROM CONGESTION, SHE IS NOT IN DISTRESS [facility] January 23, 2016 ECHO / DOMI [facility] November 01, 2015 TMT / DOMI [facility] November Physical [facility] October 21, 2015 Lab results [facility] October 29, [address] [facility] October 08, [address] [facility] October 09, 2014 Problems Problem Type Condition ICD-9 Code Onset Dates Condition Status Problem Vitamin D deficiency E55.9 Active Problem Obesity E66.9 Active Problem Menopausal and female climacteric states N95.1 Active Problem H/O leukocytosis Z86.2 Active Problem Diabetes mellitus with hyperglycemia E11.65 Active Problem Leukocytosis D72.829 Active Problem Depressive disorder, not elsewhere classified F32.9 Active Problem Esophageal reflux K21.9 Active Problem Microalbuminuria R80.9 Active Problem History of laparoscopic adjustable gastric banding Z98.84 Active Assessment Chest congestion R09.89 Active Assessment Body aches R52 Active Assessment Fatigue, unspecified type R53.83 Active Assessment SOB (shortness of breath) R06.02 Active Problem Hyperlipidemia, unspecified E78.5 Active Medications Medication Code System Code Instructions Start Date End Date Status Dosage Xigduo XR [facility] [address]-56 10-1000 MG Orally Once a day October 29, 2015 May 26, 2016 Active 1 tablet Hydrochlorothiazide [facility] 30637941192 25 MG Active TAKE 1 TABLET BY MOUTH EVERY DAY Bydureon [facility] 24672818699 2 MG Subcutaneous Active INJECT 2 MG INTO THE SKIN EVERY 7 DAYS OneTouch Ultra Test [facility] [address]-21 0 SQ use qd. E65.11 October 08, 2014 Active as directed IBU-200 [facility] [address]-23 200 MG Orally every 6 hrs Active 1 tablet as needed Wellbutrin XL [facility] [address]-97 150 MG Orally Once a day October 21, 2015 Active 1 tablet in the morning Tramadol HCl [facility] 12690466588 50 MG Oral Active (Schedule IV Drug) TAKE 1 TABLET BY MOUTH EVERY 8 HOURS NEEDED FOR PAIN GlyBURIDE [facility] 24854955538 2.5 MG Oral Active TAKE 1 TABLET BY MOUTH 2 TIMES DAILY (WITH MEALS) Albuterol Sulfate HFA [facility] [address]-73 108 (90 Base) MCG/ACT Inhalation every 4 hrs Apr 17, 2014 Active 2 puffs as needed Osphena [facility] 64215451951 60 MG Oral Active TAKE 1 TABLET BY MOUTH DAILY Voltaren [facility] 92704967503 1 % Transdermal Active APPLY TO PAINFUL REGION OVER BUTTOCK UP TO 2 TIMES A DAY NEEDED. Estring [facility] [address]-64 2 MG Vaginal Every 3 months Active 1 ring Potassium Chloride Gia ER [facility] 14863605417 10 MEQ Oral Active TAKE 1 TABLET BY MOUTH DAILY OneTouch Lancets [facility] [address]-49 0 in vitro use bid dx: 250.00 October 08, 2014 Active as directed Gabapentin [facility] [address]-88 300 MG Oral Active take 1 capsule by mouth at bedtime Pantoprazole Sodium [facility] 48910007770 40 MG Oral Active TAKE 1 TABLET BY MOUTH EVERY DAY Atorvastatin Calcium [facility] [address]-98 80 MG Orally Once a day Active 1 tablet Vitamin D (Ergocalciferol) [facility] 99234974593 78362 Orally once per week Active 1 capsule Lisinopril [facility] [address]-81 10 mg Orally daily Active 1 tablet Social History Social History Element Qualifiers Date Reported Tobacco Use: . Are you a: former smoker 1 1/2 years January 23, 2016 Do you have pets? . Status: Yes, Type: dog(s) January 23, 2016 Marital Status: . Arturo Bhakta January 23, 2016 Caffeine intake? . Status: Yes, What type: Coffee, Tea, Soft Drinks January Do you exercise? . Answer: No January 23, 2016 Do you drink alcohol? . 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
--- OUTSIDE RECORDS SUMMARY | 2018-04-20 13:30 | XMS REPORT ---
Author Author Jody Jensen [facility] eClinicalWorks Address Unknown Phone Unavailable Care Team Providers Care Casting And Pasting Supervisor Name Role Phone Jody Jensen CP Unavailable Allergies, Adverse Reactions, Alerts Substance Reaction Event Type penicillin Info Not Available Drug Allergy Encounters Encounter Location Date bladder [facility] October 25, 2013 urgent care follow-up [facility] Mar 29, 2014 Unknown [facility] Apr 11, 2014 Peer to Peer [facility] Apr 12, 2014 KNEE PAIN [facility] Mar 07, 2013 RESULTS [facility] Mar 30, 2013 Unknown [facility] Jun 01, 2013 1 week follow up 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 Active Problem Vitamin d deficiency 268.9 Active Problem HLD (hyperlipidemia) 272.4 Active Assessment Leukocytosis 288.60 Active Assessment Adult BMI > 30 V85.30 Active Assessment Fatigue 780.79 Active Assessment Elbow swelling 719.02 Active Medications Medication Code System Code Instructions Start Date End Date Status Dosage VESIcare [facility] [address]-34 5 MG Orally Once a day December 22, 2013 Active 1 tablet Estring [facility] [address]-69 2 MG Vaginal Every 3 months Active 1 ring Metronidazole [facility] 30916786544 500 MG Oral Active TAKE 1 TABLET BY MOUTH EVERY 8 HOURS FOR 10 DAYS Lactinex [facility] 76758504132 Oral Active CHEW 1 TABLET BY MOUTH EVERY 12 HOURS NEEDED DIARRHEA Potassium Chloride ER [facility] 69839750333 10 MEQ Oral Active TAKE ONE CAPSULE BY MOUTH EVERY DAY FOR 10 DAYS Pantoprazole Sodium [facility] 84278152941 40 MG Oral Active TAKE 1 TABLET BY MOUTH EVERY DAY Effexor XR [facility] [address]-19 37.5 MG Orally Once a day October 25, 2013 Active 1 capsule with food Lisinopril [facility] [address]-52 10 MG Active TAKE 1 TABLET BY MOUTH EVERY DAY Levaquin [facility] [address]-78 500 MG Orally Once a day Active 1 tablet Social History Social History [...] 2014 Siblings sister- DM Apr 17, 2014 Vital Signs Date/Time: Apr 11, 2014 Weight 229 lbs Height 66 in Temperature 97.9 F Cardiac Monitoring Heart Rate 64 /min Blood Pressure Diastolic 80 mm Hg Blood Pressure Systolic 122 mm Hg Immunizations Vaccine Administration Date FLU 3YRS & UP 98588 Apr 11, 2014 Summary Purpose eClinicalWorks Submission
--- OUTSIDE RECORDS SUMMARY | 2018-04-20 13:30 | XMS REPORT ---
Author Author Domi Jean Organization eClinicalWorks Address Unknown Phone Unavailable Care Team Providers Care Hook Up Driver Name Role Phone Domi Jean CP Unavailable Encounters Encounter Location Date bladder [facility] October 25, 2013 urgent care follow-up [facility] Mar 29, 2014 Unknown [facility] Apr 11, 2014 Peer to Peer [facility] Apr 12, 2014 KNEE PAIN [facility] Mar 07, 2013 RESULTS [facility] Mar 30, 2013 Unknown [facility] Jun 01, 2013 Unknown [facility] October 03, 2014 1 week follow up [facility] Apr 17, 2014 Test results [facility] Apr ECHO / DOMI [facility] November 01, 2015 Physical [facility] October 21, 2015 Lab results [facility] October 29, 2015 Unknown [facility] October 08, 2014 Unknown [facility] October 09, 2014 Problems [...] adjustable gastric banding Z98.84 Active Assessment Abnormal EKG R94.31 Active Problem Hyperlipidemia, unspecified E78.5 Active Problem Vitamin D deficiency E55.9 Active Medications Medication Code System Code Instructions Start Date End Date Status Dosage Lisinopril [facility] [address]-28 10 mg Orally daily Active 1 tablet Atorvastatin Calcium [facility] [address]-86 80 MG Orally Once a day Active 1 tablet Hydrochlorothiazide [facility] [address]-90 25 MG Orally Once a day Active 1 tablet IBU-200 [facility] [address]-67 200 MG Orally every 6 hrs Active 1 tablet as needed Xigduo XR [facility] [address]-79 10-1000 MG Orally Once a day October 29, 2015 May 26, 2016 Active 1 tablet Albuterol Sulfate HFA [facility] [address]-27 108 (90 Base) MCG/ACT Inhalation every 4 hrs Apr 17, 2014 Active 2 puffs as needed Vitamin D (Ergocalciferol) [facility] 82612881745 35493 Orally once per week Active 1 capsule Wellbutrin XL [facility] [address]-28 150 MG Orally Once a day October 21, 2015 Active 1 tablet in the morning Estring [facility] [address]-03 2 MG Vaginal Every 3 months Active 1 ring Potassium Chloride Gia ER [facility] 37586193946 10 MEQ Oral Active TAKE 1 TABLET BY MOUTH DAILY OneTouch Lancets [facility] [address]-62 0 in vitro use bid dx: 250.00 October 08, 2014 Active as directed Pantoprazole Sodium [facility] 55538788764 40 MG Oral Active TAKE 1 TABLET BY MOUTH EVERY DAY VESIcare [facility] [address]-00 5 MG Orally Once a day December 22, 2013 Active 1 tablet Bydureon [facility] 56289203396 2 MG Subcutaneous Active INJECT 2 MG INTO THE SKIN EVERY 7 DAYS GlyBURIDE [facility] 53506615704 2.5 MG Oral Active TAKE 1 TABLET BY MOUTH 2 TIMES DAILY (WITH MEALS) Osphena [facility] 20661830495 60 MG Oral Active TAKE 1 TABLET BY MOUTH DAILY Tramadol HCl [facility] 32131987163 50 MG Oral Active (Schedule IV Drug) TAKE 1 TABLET BY MOUTH EVERY 8 HOURS NEEDED FOR PAIN Gabapentin [facility] [address]-54 300 MG Oral Active take 1 capsule by mouth at bedtime Voltaren [facility] 79561569698 1 % Transdermal Active APPLY TO PAINFUL REGION OVER BUTTOCK UP TO 2 TIMES A DAY NEEDED. OneTouch Ultra Test [facility] [address]-83 0 SQ use qd. E65.11 October 08, 2014 Active as directed Social History Social History Element Qualifiers Date Reported Tobacco Use: . Are you a: former smoker 1 1/2 years October 29, 2015 Do you have pets? . Status: Yes, Type: dog(s) October 29, 2015 Marital Status: . Arturo Bhakta October 29, 2015 Caffeine intake? . Status: Yes, What type: Coffee, Tea, Soft Drinks October Do you exercise? . Answer: No October 29, 2015 Do you drink alcohol? . 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
--- OUTSIDE RECORDS SUMMARY | 2018-04-20 13:30 | XMS REPORT ---
Author Author Jody Jensen [facility] eClinicalWorks Address Unknown Phone Unavailable Care Team Providers Care Physical Education Teacher Name Role Phone Jody Jensen CP Unavailable Allergies, Adverse Reactions, Alerts Substance Reaction Event Type penicillin Info Not Available Drug Allergy Encounters Encounter Location Date bladder [facility] October 25, 2013 urgent care follow-up [facility] Mar 29, 2014 Unknown [facility] Apr 11, 2014 Peer to Peer [facility] Apr 12, 2014 KNEE PAIN [facility] Mar 07, 2013 RESULTS [facility] Mar 30, 2013 Unknown [facility] Jun 01, 2013 1 week follow up [facility] Apr 17, 2014 Problems Problem Type Condition ICD-9 Code Onset Dates Condition Status Problem Microalbuminuria 791.0 Active Problem Vitamin d deficiency 268.9 Active Problem HLD (hyperlipidemia) 272.4 Active Problem Diabetes mellitus type 2, controlled 250.00 Active Assessment Obesity 278.00 Active Problem Depression 311 Active Assessment BMI 37.0-37.9, adult V85.37 Active Assessment Microalbuminuria 791.0 Active Problem BMI 37.0-37.9, adult V85.37 Active Problem Obesity 278.00 Active Problem Menopause 627.2 Active Problem GERD (Esophageal reflux) 530.81 Active Problem History of laparoscopic adjustable gastric banding V45.86 Active Assessment Diabetes mellitus type 2, controlled 250.00 Active Assessment History of laparoscopic adjustable gastric banding V45.86 Active Assessment Depression 311 Active Assessment GERD (Esophageal reflux) 530.81 Active Assessment Menopause 627.2 Active Assessment 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 Active Assessment HLD (hyperlipidemia) 272.4 Active Assessment Shortness of breath 786.05 Active Assessment Depression screening V79.0 Active Assessment Vitamin d deficiency 268.9 Active Problem 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 Active Medications Medication Code System Code Instructions Start Date End Date Status Dosage IBU-200 [facility] [address]-37 200 MG Orally every 6 hrs Active 1 tablet as needed Effexor XR [facility] [address]-93 37.5 MG Orally Once a day October 25, 2013 Active 1 capsule with food Lactinex [facility] 45289640036 Oral Active CHEW 1 TABLET BY MOUTH EVERY 12 HOURS NEEDED DIARRHEA Lisinopril [facility] [address]-48 10 MG Active TAKE 1 TABLET BY MOUTH EVERY DAY Pantoprazole Sodium [facility] 64799086376 40 MG Oral Active TAKE 1 TABLET BY MOUTH EVERY DAY Potassium Chloride ER [facility] 98581737433 10 MEQ Oral Active TAKE ONE CAPSULE BY MOUTH EVERY DAY FOR 10 DAYS Levaquin [facility] [address]-01 500 MG Orally Once a day Active 1 tablet Metronidazole [facility] 62293661710 500 MG Oral Active TAKE 1 TABLET BY MOUTH EVERY 8 HOURS FOR 10 DAYS Estring [facility] [address]-76 2 MG Vaginal Every 3 months Active 1 ring VESIcare [facility] [address]-72 5 MG Orally Once a day December 22, 2013 Active 1 tablet Albuterol Sulfate HFA [facility] [address]-65 108 (90 Base) MCG/ACT Inhalation every 4 hrs Apr 17, 2014 Active 2 puffs as needed Social History Social History Element Qualifiers Date [...] Apr 17, 2014 Vital Signs Date/Time: Apr 17, 2014 Weight 230 lbs Height 66 in Temperature 98.2 F Cardiac Monitoring Heart Rate 66 /min Blood Pressure Diastolic 80 mm Hg Blood Pressure Systolic 124 mm Hg Summary Purpose eClinicalWorks Submission
--- OUTSIDE RECORDS SUMMARY | 2018-04-20 13:30 | XMS REPORT ---
Author Author Renata Marinelli [facility] eClinicalWorks Address Unknown Phone Unavailable Care Team Providers Care Strap Cutter Name Role Phone Renata Marinelli Unavailable Allergies, Adverse Reactions, Alerts Substance Reaction Event Type penicillin Info Not Available Drug Allergy Encounters Encounter Location Date bladder [facility] October 25, 2013 urgent care follow-up [facility] Mar 29, 2014 Unknown [facility] Apr 11, 2014 Peer to Peer [facility] Apr 12, 2014 KNEE PAIN [facility] Mar 07, 2013 RESULTS [facility] Mar 30, 2013 Unknown [facility] Jun 01, 2013 Unknown [facility] October 03, 2014 1 week follow up [facility] Apr 17, 2014 Test results [facility] Apr CHEST CONGESTION [facility] December 19, 2015 ECHO / DOMI [facility] November 01, 2015 TMT / DOMI [facility] November Physical [facility] October 21, 2015 Lab results [facility] October 29, 2015 Unknown [facility] October 08, 2014 Unknown [facility] October 09, 2014 [...] adjustable gastric banding Z98.84 Active Assessment URI (upper respiratory infection) J06.9 Active Assessment Chest congestion R09.89 Active Problem Hyperlipidemia, unspecified E78.5 Active Problem Vitamin D deficiency E55.9 Active Medications Medication Code System Code Instructions Start Date End Date Status Dosage Pepper Orourke [facility] [address]-27 0 in vitro use bid dx: 250.00 October 08, 2014 Active as directed Levaquin [facility] [address]-59 500 mg Orally Once a day December 19, 2015 December 26, 2015 Active 1 tablet VESIcare [facility] [address]-37 5 MG Orally Once a day December 22, 2013 Active 1 tablet Bromfed DM [facility] [address]-62 30-2-10 MG/5ML Orally every 6 hrs DecemberDecember 29, 2015 Active 10 ml as needed Bydureon [facility] 18183739959 2 MG Subcutaneous Active INJECT 2 MG INTO THE SKIN EVERY 7 DAYS Osphena [facility] 08686156945 60 MG Oral Active TAKE 1 TABLET BY MOUTH DAILY Voltaren [facility] 51748008011 1 % Transdermal Active APPLY TO PAINFUL REGION OVER BUTTOCK UP TO 2 TIMES A DAY NEEDED. Potassium Chloride Gia ER [facility] 40775056450 10 MEQ Oral Active TAKE 1 TABLET BY MOUTH DAILY Hydrochlorothiazide [facility] [address]-61 25 MG Active TAKE 1 TABLET BY MOUTH EVERY DAY Pantoprazole Sodium [facility] 78841828336 40 MG Oral Active TAKE 1 TABLET BY MOUTH EVERY DAY GlyBURIDE [facility] 91761403861 2.5 MG Oral Active TAKE 1 TABLET BY MOUTH 2 TIMES DAILY (WITH MEALS) Tramadol HCl [facility] 49965849267 50 MG Oral Active (Schedule IV Drug) TAKE 1 TABLET BY MOUTH EVERY 8 HOURS NEEDED FOR PAIN Albuterol Sulfate HFA [facility] [address]-12 108 (90 Base) MCG/ACT Inhalation every 4 hrs Apr 17, 2014 Active 2 puffs as needed IBU-200 [facility] [address]-38 200 MG Orally every 6 hrs Active 1 tablet as needed Gabapentin [facility] [address]-69 300 MG Oral Active take 1 capsule by mouth at bedtime Xigduo XR [facility] [address]-31 10-1000 MG Orally Once a day October 29, 2015 May 26, 2016 Active 1 tablet Wellbutrin XL [facility] [address]-78 150 MG Orally Once a day October 21, 2015 Active 1 tablet in the morning Lisinopril [facility] [address]-56 10 mg Orally daily Active 1 tablet OneTouch Ultra Test [facility] [address]-85 0 SQ use qd. E65.11 October 08, 2014 Active as directed Atorvastatin Calcium [facility] [address]-53 80 MG Orally Once a day Active 1 tablet Vitamin D (Ergocalciferol) [facility] 05030050473 17023 Orally once per week Active 1 capsule Estring [facility] [address]-17 2 MG Vaginal Every 3 months Active 1 ring Social History Social History Element Qualifiers Date Reported Tobacco Use: . Are you a: former smoker 1 1/2 years December 19, 2015 Do you have pets? . Status: Yes, Type: dog(s) December 19, 2015 Marital Status: . Arturo Bhakta December 19, 2015 Caffeine intake? . Status: Yes, What type: Coffee, Tea, Soft Drinks December Do you exercise? . Answer: No December 19, 2015 Do you drink alcohol? . 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
--- OUTSIDE RECORDS SUMMARY | 2018-04-20 13:30 | XMS REPORT ---
Author Author Basil Jean Organization eClinicalWorks Address Unknown Phone Unavailable Care Team Providers Care Telecommunications Support Name Role Phone Basil Jean CP Unavailable Allergies, Adverse Reactions, Alerts Substance Reaction Event Type penicillin Info Not Available Drug Allergy Encounters Encounter Location Date bladder [facility] October 25, 2013 urgent care follow-up [facility] Mar 29, 2014 Unknown [facility] Apr 11, 2014 Peer to Peer [facility] Apr 12, 2014 KNEE PAIN [facility] Mar 07, 2013 RESULTS [facility] Mar 30, 2013 Unknown [facility] Jun 01, 2013 Unknown [facility] October 03, 2014 1 week follow up [facility] Apr 17, 2014 Test results [facility] Apr Physical [facility] October 21, 2015 Lab results [facility] October 29, 2015 Unknown [facility] October 08, 2014 Unknown [facility] October 09, [...] laparoscopic adjustable gastric banding Z98.84 Active Assessment Microalbuminuria R80.9 Active Assessment Diabetes mellitus with hyperglycemia E11.65 Active Assessment Hyperlipidemia, unspecified E78.5 Active Assessment Leukocytosis D72.829 Active Assessment H/O leukocytosis Z86.2 Active Problem Hyperlipidemia, unspecified E78.5 Active Assessment Vitamin D deficiency E55.9 Active Problem Vitamin D deficiency E55.9 Active Medications Medication Code System Code Instructions Start Date End Date Status Dosage GlyBURIDE [facility] 29741242758 2.5 MG Oral Active TAKE 1 TABLET BY MOUTH 2 TIMES DAILY (WITH MEALS) Bydureon [facility] 34826505870 2 MG Subcutaneous Active INJECT 2 MG INTO THE SKIN EVERY 7 DAYS Atorvastatin Calcium [facility] [address]-64 80 MG Orally Once a day Active 1 tablet IBU-200 [facility] [address]-33 200 MG Orally every 6 hrs Active 1 tablet as needed Gabapentin [facility] [address]-84 300 MG Oral Active take 1 capsule by mouth at bedtime Potassium Chloride Gia ER [facility] 69540963660 10 MEQ Oral Active TAKE 1 TABLET BY MOUTH DAILY Albuterol Sulfate HFA [facility] [address]-27 108 (90 Base) MCG/ACT Inhalation every 4 hrs Apr 17, 2014 Active 2 puffs as needed Xigduo XR [facility] [address]-69 10-1000 MG Orally Once a day October 29, 2015 May 26, 2016 Active 1 tablet Wellbutrin XL [facility] [address]-94 150 MG Orally Once a day October 21, 2015 Active 1 tablet in the morning Voltaren [facility] 98896194015 1 % Transdermal Active APPLY TO PAINFUL REGION OVER BUTTOCK UP TO 2 TIMES A DAY NEEDED. Tramadol HCl [facility] 77135875937 50 MG Oral Active (Schedule IV Drug) TAKE 1 TABLET BY MOUTH EVERY 8 HOURS NEEDED FOR PAIN OneTouch Lancets [facility] [address]-65 0 in vitro use bid dx: 250.00 October 08, 2014 Active as directed Estring [facility] [address]-36 2 MG Vaginal Every 3 months Active 1 ring VESIcare [facility] [address]-65 5 MG Orally Once a day December 22, 2013 Active 1 tablet MetFORMIN HCl ER [facility] 06973071895 500 MG Oral Inactive TAKE 2 TABLETS BY MOUTH 2 TIMES DAILY (WITH MEALS) Vitamin D (Ergocalciferol) [facility] 18926982658 11147 Orally once per week Active 1 capsule Pantoprazole Sodium [facility] 95283501386 40 MG Oral Active TAKE 1 TABLET BY MOUTH EVERY DAY OneTouch Ultra Test [facility] [address]-19 0 SQ use qd. 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
--- OUTSIDE RECORDS SUMMARY | 2018-04-20 13:30 | XMS REPORT ---
Author Author Basil Jean Organization eClinicalWorks Address Unknown Phone Unavailable Care Team Providers Care Human Factors Advisor Lead Name Role Phone Basil Jean CP Unavailable Allergies, Adverse Reactions, Alerts Substance Reaction Event Type penicillin Info Not Available Drug Allergy Encounters Encounter Location Date bladder [facility] October 25, 2013 urgent care follow-up [facility] Mar 29, 2014 Unknown [facility] Apr 11, 2014 Peer to Peer [facility] Apr 12, 2014 KNEE PAIN [facility] Mar 07, 2013 RESULTS [facility] Mar 30, 2013 Unknown [facility] Jun 01, 2013 Unknown [facility] October 03, 2014 1 week follow up [facility] Apr 17, 2014 Test results [facility] Apr Physical [facility] October 21, 2015 Unknown [facility] October 08, 2014 Unknown [facility] October 09, 2014 Problems Problem Type Condition ICD-9 Code Onset Dates Condition Status Assessment Routine general medical examination at a health care facility Z00.00 Active Problem Vitamin D deficiency E55.9 Active Problem Hyperlipidemia, unspecified E78.5 Active Problem DM w/o complication type II E11.9 Active Assessment HTN (hypertension) I10 Active Problem Depressive disorder, not elsewhere classified F32.9 Active Assessment Back pain M54.9 Active Assessment Shortness of breath R06.02 Active Problem History of laparoscopic adjustable gastric banding Z98.84 Active Problem Obesity E66.9 Active Problem Menopausal and female climacteric states N95.1 Active Problem Esophageal reflux K21.9 Active Problem Microalbuminuria 791.0 Active Assessment Abnormal EKG R94.31 Active Assessment Menopausal and postmenopausal disorder N95.9 Active Assessment Obesity E66.9 Active Assessment Edema R60.9 Active Assessment Vitamin D deficiency E55.9 Active Assessment Depressive disorder, not elsewhere classified F32.9 Active Assessment Screening for malignant neoplasm of breast Z12.39 Active Assessment Esophageal reflux K21.9 Active Assessment Hyperlipidemia, unspecified E78.5 Active Assessment DM w/o complication type II E11.9 Active Medications Medication Code System Code Instructions Start Date End Date Status Dosage Pantoprazole Sodium [facility] 84703320452 40 MG Oral Active TAKE 1 TABLET BY MOUTH EVERY DAY Estring [facility] [address]-37 2 MG Vaginal Every 3 months Active 1 ring Osphena [facility] 11107356557 60 MG Oral Active TAKE 1 TABLET BY MOUTH DAILY Vitamin D (Ergocalciferol) [facility] 70736963019 25793 Orally once per week Active 1 capsule Hydrochlorothiazide [facility] [address]-52 25 MG Orally Once a day Active 1 tablet Atorvastatin Calcium [facility] [address]-75 80 MG Orally Once a day Active 1 tablet VESIcare [facility] [address]-59 5 MG Orally Once a day December 22, 2013 Active 1 tablet Lisinopril [facility] [address]-88 10 mg Orally daily Active 1 tablet Potassium Chloride Gia ER [facility] 46898274923 10 MEQ Oral Active TAKE 1 TABLET BY MOUTH DAILY Voltaren [facility] 73304164485 1 % Transdermal Active APPLY TO PAINFUL REGION OVER BUTTOCK UP TO 2 TIMES A DAY NEEDED. OneTouch Ultra Test [facility] [address]-94 0 SQ use qd. E65.11 October 08, 2014 Active as directed MetFORMIN HCl ER [facility] 38505831374 500 MG Oral Active TAKE 2 TABLETS BY MOUTH 2 TIMES DAILY (WITH MEALS) Wellbutrin XL [facility] [address]-40 150 MG Orally Once a day October 21, 2015 Active 1 tablet in the morning IBU-200 [facility] [address]-55 200 MG Orally every 6 hrs Active 1 tablet as needed Albuterol Sulfate HFA [facility] [address]-39 108 (90 Base) MCG/ACT Inhalation every 4 hrs Apr 17, 2014 Active 2 puffs as needed GlyBURIDE [facility] 21716685804 2.5 MG Oral Active TAKE 1 TABLET BY MOUTH 2 TIMES DAILY (WITH MEALS) Gabapentin [facility] [address]-02 300 MG Oral Active take 1 capsule by mouth at bedtime Tramadol HCl [facility] 30544305844 50 MG Oral Active (Schedule IV Drug) TAKE 1 TABLET BY MOUTH EVERY 8 HOURS NEEDED FOR PAIN [facility] [address]-81 0 in vitro use bid dx: 250.00 October 08, 2014 Active as directed Benny [facility] 23641669063 2 MG Subcutaneous Active INJECT 2 MG INTO THE SKIN EVERY 7 DAYS Social History Social History Element Qualifiers Date Reported Tobacco Use: . Are you a: former smoker 1 1/2 years October 21, 2015 Do you have pets? . Status: Yes, Type: dog(s) October 21, 2015 Marital Status: . Arturo Bhakta October 21, 2015 Caffeine intake? . Status: Yes, What type: Coffee, Tea, Soft Drinks October Do you exercise? . Answer: No October 21, 2015 Do you drink alcohol? . 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
--- OUTSIDE RECORDS SUMMARY | 2018-04-20 13:30 | XMS REPORT ---
Author Author ~~Jody Jensen eClinicalWorks Address Unknown Phone Unavailable Care Team Providers Care City Administrator Name Role Phone ~~Jody Jensen CP Unavailable Encounters Encounter Location Date bladder [facility] October 25, 2013 urgent care follow-up [facility] Mar 29, 2014 Unknown [facility] Apr 11, 2014 Peer to Peer [facility] Apr 12, 2014 KNEE PAIN [facility] Mar 07, 2013 RESULTS [facility] Mar 30, 2013 Unknown [facility] Jun 01, 2013 1 week follow up [facility] Apr 17, 2014 Test results [facility] Apr Problems Problem Type Condition ICD-9 Code Onset Dates Condition Status Problem Microalbuminuria 791.0 Active Problem Vitamin d deficiency 268.9 Active Problem HLD (hyperlipidemia) 272.4 Active Problem Diabetes mellitus type 2, controlled 250.00 Active Problem Depression 311 Active Problem BMI 37.0-37.9, adult V85.37 Active Problem Obesity 278.00 Active Problem Menopause 627.2 Active Problem GERD (Esophageal reflux) 530.81 Active Problem History of laparoscopic adjustable gastric banding V45.86 Active Assessment Elbow swelling 719.02 Active Assessment Tendon tear 848.9 Active Problem 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 Are you a: former smoker 1 1/2 years May 22, 2014 Marital Status: . Arturo Yony May 22, 2014 Do you drink alcohol? . 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
--- OUTSIDE RECORDS SUMMARY | 2018-04-20 13:31 | XMS REPORT ---
Author Author Melba Rojas eClinicalWorks Address Unknown Phone Unavailable Care Team Providers Care Automation Control Integrator Name Role Phone Melba Rojas CP Unavailable Encounters Encounter Location Date bladder [facility] October 25, 2013 urgent care follow-up [facility] Mar 29, 2014 Unknown [facility] Apr 11, 2014 Peer to Peer [facility] Apr 12, 2014 KNEE PAIN [facility] Mar 07, 2013 RESULTS [facility] Mar 30, 2013 Unknown [facility] Jun 01, 2013 Unknown [facility] October 03, 2014 refill request [facility] May 14, 2016 possible uti [facility] Feb 28, 2016 1 week follow up [facility] Apr 17, 2014 Test results [facility] Apr CHEST CONGESTION [facility] December 19, 2015 PT SAYS SHE IS HAVING CHEST DISCOMFORT FROM CONGESTION, SHE IS NOT IN DISTRESS [facility] January 23, 2016 ECHO / DOMI [facility] November 01, 2015 TMT / DOMI [facility] November PA on BYDUREON 2mg [facility] May 14, 2016 Physical [facility] October 21, 2015 Lab results [facility] October 29, 2015 Unknown [facility] October 08, 2014 Unknown [facility] October 09, 2014 Cardiolyte Stress Test [facility] February 05, 2016 Problems Problem Type Condition ICD-9 Code Onset Dates Condition Status Problem Obesity E66.9 Active Problem Depressive disorder, not elsewhere classified F32.9 Active Problem Esophageal reflux K21.9 Active Problem Neutrophilic leukocytosis D72.9 Active Problem Type 2 diabetes mellitus with other diabetic kidney complication E11.29 Active Problem Left wrist pain M25.532 Active Problem Microalbuminuria R80.9 Active Problem History of laparoscopic adjustable gastric banding Z98.84 Active Problem Sleep apnea G47.30 Active Problem Diabetes mellitus with hyperglycemia E11.65 Active Assessment Diabetes mellitus with hyperglycemia E11.65 Active Problem Hyperlipidemia, unspecified E78.5 Active Problem Vitamin D deficiency E55.9 Active Problem Menopausal and female climacteric states N95.1 Active Medications Medication Code System Code Instructions Start Date End Date Status D[facility] 2 MG Subcutaneous once per week Jun 13, 2016 Active INJECT 2 MG INTO THE SKIN EVERY 7 DAYS Social History Social History Element Qualifiers Date Reported Tobacco Use: . Are you a: former smoker 1 1/2 years Feb 28, 2016 Do you have pets? . Status: Yes, Type: dog(s) Feb 28, 2016 Marital Status: . Arturo Yony Feb 28, 2016 Caffeine intake? . Status: Yes, What type: Coffee, Tea, Soft Drinks Feb 28, 2016 Do you exercise? . Answer: No Feb 28, 2016 Do you drink alcohol? . 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
--- OUTSIDE RECORDS SUMMARY | 2018-04-20 13:31 | XMS REPORT ---
Author Author Melba Rojas eClinicalWorks Address Unknown Phone Unavailable Care Team Providers Care Translational Specialist Name Role Phone Melba Rojas CP Unavailable Encounters Encounter Location Date bladder [facility] October 25, 2013 urgent care follow-up [facility] Mar 29, 2014 Unknown [facility] Apr 11, 2014 Peer to Peer [facility] Apr 12, 2014 KNEE PAIN [facility] Mar 07, 2013 RESULTS [facility] Mar 30, 2013 Unknown [facility] Jun 01, 2013 Unknown [facility] October 03, 2014 refill request [facility] May 14, 2016 possible uti [facility] Feb 28, 2016 1 week follow up [facility] Apr 17, 2014 Test results [facility] Apr CHEST CONGESTION [facility] December 19, 2015 PT SAYS SHE IS HAVING CHEST DISCOMFORT FROM CONGESTION, SHE IS NOT IN DISTRESS [facility] January 23, 2016 ECHO / DOMI [facility] November 01, 2015 TMT / DOMI [facility] November PA on BYDUREON 2mg [facility] May 14, 2016 Physical [facility] October 21, 2015 Lab results [facility] October 29, 2015 Unknown [facility] October 08, 2014 Unknown [facility] October 09, 2014 Cardiolyte Stress Test [facility] February 05, 2016 [...] Menopausal and female climacteric states N95.1 Active Social History Social History Element Qualifiers Date Reported Tobacco Use: . Are you a: former smoker 1 1/2 years Feb 28, 2016 Do you have pets? . Status: Yes, Type: dog(s) Feb 28, 2016 Marital Status: . Arturo Bhakta Feb 28, 2016 Caffeine intake? . Status: Yes, What type: Coffee, Tea, Soft Drinks Feb 28, 2016 Do you exercise? . Answer: No Feb 28, 2016 Do you drink alcohol? . 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
--- OUTSIDE RECORDS SUMMARY | 2018-04-20 13:31 | XMS REPORT ---
Author Author Alma [facility] eClinicalWorks Address Unknown Phone Unavailable Care Team Providers Care Reheater Name Role Phone Clarence Alma YANEZ Unavailable Allergies, Adverse Reactions, Alerts Substance Reaction Event Type penicillin Info Not Available Drug Allergy Encounters Encounter Location Date bladder [facility] October 25, 2013 urgent care follow-up [facility] Mar 29, 2014 Unknown [facility] Apr 11, 2014 Peer to Peer [facility] Apr 12, 2014 KNEE PAIN [facility] Mar 07, 2013 RESULTS [facility] Mar 30, 2013 Unknown [facility] Jun 01, 2013 Unknown [facility] October 03, 2014 refill request [facility] May 14, 2016 possible uti [facility] Feb 28, 2016 1 week follow up [facility] Apr 17, 2014 Test results [facility] Apr CHEST CONGESTION [facility] December 19, 2015 PT SAYS SHE IS HAVING CHEST DISCOMFORT FROM CONGESTION, SHE IS NOT IN DISTRESS [facility] January 23, 2016 ECHO / DOMI [facility] November 01, 2015 TMT / DOMI [facility] November PA on BYDUREON 2mg [facility] May 14, 2016 Physical [facility] October 21, 2015 fatigue [facility] Jun 18, 2016 Lab results [facility] October 29, 2015 Unknown [facility] October 08, 2014 Unknown [facility] October 09, 2014 Cardiolyte Stress Test [facility] February 05, 2016 Problems Problem Type Condition ICD-9 Code Onset Dates Condition Status Problem Esophageal reflux K21.9 Active Problem History of laparoscopic adjustable gastric banding Z98.84 Active Problem Depressive disorder, not elsewhere classified F32.9 Active Problem Left wrist pain M25.532 Active Problem Neutrophilic leukocytosis D72.9 Active Problem Chronic vaginitis N76.1 Active Problem Diabetes mellitus with hyperglycemia E11.65 Active Problem Microalbuminuria R80.9 Active Problem Type 2 diabetes mellitus with other diabetic kidney complication E11.29 Active Problem Sleep apnea G47.30 Active Assessment Low back pain, unspecified back pain laterality, unspecified chronicity, with sciatica presence unspecified M54.5 Active Assessment Acute vaginitis N76.0 Active Assessment Upper respiratory tract infection, unspecified type J06.9 Active Problem Hyperlipidemia, unspecified E78.5 Active Problem Vitamin D deficiency E55.9 Active Assessment Diabetes mellitus with hyperglycemia E11.65 Active Problem Menopausal and female climacteric states N95.1 Active Assessment Chest congestion R09.89 Active Problem Obesity E66.9 Active Medications Medication Code System Code Instructions Start Date End Date Status Dosage GlyBURIDE [facility] [id number] 2.5 MG Oral Active TAKE 1 TABLET BY MOUTH 2 TIMES DAILY (WITH MEALS) OneTouch Ultra Test [facility] [address]-59 0 SQ use qd. E65.11 October 08, 2014 Active as directed Diflucan [facility] [address]-67 150 MG Orally Once a day Jun 18, 2016 Jun 21, 2016 Active 1 tablet Atorvastatin Calcium [facility] [address]-57 80 MG Orally Once a day Active 1 tablet Hydrochlorothiazide [facility] 05144583364 25 MG Active TAKE 1 TABLET BY MOUTH EVERY DAY Ibuprofen [facility] [address]-86 100 MG/5ML Orally every 6 hrs Jun 18, 2016 Jul 18, 2016 Active 10 ml as needed IBU-200 [facility] [address]-99 200 MG Orally every 6 hrs Inactive 1 tablet as needed Tramadol HCl [facility] 11792393508 50 MG Oral Active (Schedule IV Drug) TAKE 1 TABLET BY MOUTH EVERY 8 HOURS NEEDED FOR PAIN Ventolin HFA [facility] [address]-78 108 (90 Base) MCG/ACT Inhalation every 4 hrs Jun 18, 2016 Active 2 puffs as needed Lisinopril [facility] [address]-66 10 MG Active TAKE 1 TABLET BY MOUTH EVERY DAY Potassium Chloride Gia ER [facility] 05783498802 10 MEQ Oral Active TAKE 1 TABLET BY MOUTH DAILY Osphena [facility] 11788829983 60 MG Oral Active TAKE 1 TABLET BY MOUTH DAILY Albuterol Sulfate HFA [facility] [address]-81 108 (90 Base) MCG/ACT Inhalation every 4 hrs Apr 17, 2014 Active 2 puffs as needed OneTouch Lancaugustine [facility] [address]-72 0 in vitro use bid dx: 250.00 October 08, 2014 Active as directed Bydureon [facility] 79067481570 2 MG Subcutaneous once per week Active INJECT 2 MG INTO THE SKIN EVERY 7 DAYS Pantoprazole Sodium [facility] 06892844177 40 MG Oral Active TAKE 1 TABLET BY MOUTH EVERY DAY Wellbutrin XL [facility] 57911576786 150 MG Orally Once a day Active 1 tablet in the morning Vitamin D (Ergocalciferol) [facility] 35998538268 93991 Orally once per week Active 1 capsule Zithromax Z-Pedro [facility] [address]-06 250 MG Orally Once a day Jun 18, 2016 Jun 23, 2016 Active 2 tablets on the first day, then 1 tablet daily for 4 days Estring [facility] [address]-27 2 MG Vaginal Every 3 months Active 1 ring Social History Social History Element Qualifiers Date Reported Tobacco Use: . Are you a: former smoker 1 1/2 years Jun 18, 2016 Do you have pets? . Status: Yes, Type: dog(s) Jun 18, 2016 Marital Status: . Arturo Bhakta Jun 18, 2016 Caffeine intake? . Status: Yes, What type: Coffee, Tea, Soft Drinks Jun 18, 2016 Do you exercise? . Answer: No Jun 18, 2016 Do you drink alcohol? . Status: No Jun 18, 2016 Occupation: . Homemaker Jun 18, 2016 Family history Qualifier Description Comment Date Reported Maternal Grandmother Comment not available Jun 18, 2016 Paternal Grandmother Comment not available Jun 18, 2016 Siblings sister- DM Jun 18, 2016 Maternal Grandfather Comment not available Jun 18, 2016 Children Comment not available Jun 18, 2016 Father alive heart disease, diabetes mellitus Jun 18, 2016 Paternal Grandfather Comment not available Jun 18, 2016 Mother alive diabetes, hypertension Jun 18, 2016 Other: Comment not available Jun 18, 2016 Vital Signs Date/Time: Jun 18, 2016 Weight 261 lbs Height 66 in Cardiac Monitoring Heart Rate 82 /min Blood Pressure Diastolic 82 mm Hg Blood Pressure Systolic 120 mm Hg Results Chest 2 views- Xray Summary Purpose eClinicalWorks Submission
--- OUTSIDE RECORDS SUMMARY | 2018-04-20 13:31 | XMS REPORT ---
Author Author Melba Rojas [facility] eClinicalWorks Address Unknown Phone Unavailable Care Team Providers Care Forensic Pathologist Name Role Phone Melba Rojas CP Unavailable Allergies, Adverse Reactions, Alerts Substance Reaction Event Type penicillin Info Not Available Drug Allergy Encounters Encounter Location Date bladder [facility] October 25, 2013 urgent care follow-up [facility] Mar 29, 2014 Unknown [facility] Apr 11, 2014 Peer to Peer [facility] Apr 12, 2014 KNEE PAIN [facility] Mar 07, 2013 RESULTS [facility] Mar 30, 2013 Unknown [facility] Jun 01, 2013 Unknown [facility] October 03, 2014 possible uti [facility] Feb 28, 2016 1 week follow up [facility] Apr 17, 2014 Test results [facility] Apr CHEST CONGESTION [facility] December 19, 2015 PT SAYS SHE IS HAVING CHEST DISCOMFORT FROM CONGESTION, SHE IS NOT IN DISTRESS [facility] January 23, 2016 ECHO / DOMI [facility] November 01, 2015 TMT / DOMI [facility] November Physical [facility] October 21, 2015 Lab results [facility] October 29, [address] [facility] October 08, [address] [facility] October 09, 2014 Cardiolyte Stress Test [facility] February 05, 2016 Problems Problem Type Condition ICD-9 Code Onset Dates Condition Status Problem Obesity E66.9 Active Problem Depressive disorder, not elsewhere classified F32.9 Active Problem Esophageal reflux K21.9 Active Problem Neutrophilic leukocytosis D72.9 Active Assessment Left wrist pain M25.532 Active Problem Type 2 diabetes mellitus with other diabetic kidney complication E11.29 Active Problem Left wrist pain M25.532 Active Problem Microalbuminuria R80.9 Active Problem History of laparoscopic adjustable gastric banding Z98.84 Active Problem Sleep apnea G47.30 Active Problem Diabetes mellitus with hyperglycemia E11.65 Active Assessment Type 2 diabetes mellitus with other diabetic kidney complication E11.29 Active Assessment Esophageal reflux K21.9 Active Assessment UTI (urinary tract infection) N39.0 Active Assessment Microalbuminuria R80.9 Active Assessment Diabetes mellitus with hyperglycemia E11.65 Active Problem Hyperlipidemia, unspecified E78.5 Active Assessment Hyperlipidemia, unspecified E78.5 Active Problem Vitamin D deficiency E55.9 Active Assessment Vitamin D deficiency E55.9 Active Problem Menopausal and female climacteric states N95.1 Active Medications Medication Code System Code Instructions Start Date End Date Status Dosage GlyBURIDE [facility] 70735935950 2.5 MG Oral Active TAKE 1 TABLET BY MOUTH 2 TIMES DAILY (WITH MEALS) Bydureon [facility] 48511264490 2 MG Subcutaneous Active INJECT 2 MG INTO THE SKIN EVERY 7 DAYS IBU-200 [facility] [address]-63 200 MG Orally every 6 hrs Active 1 tablet as needed OneTouch Lancets [facility] [address]-58 0 in vitro use bid dx: 250.00 October 08, 2014 Active as directed Pantoprazole Sodium [facility] 22257054616 40 MG Oral Active TAKE 1 TABLET BY MOUTH EVERY DAY Lisinopril [facility] [address]-71 10 MG Active TAKE 1 TABLET BY MOUTH EVERY DAY Potassium Chloride Gia ER [facility] 01717092360 10 MEQ Oral Active TAKE 1 TABLET BY MOUTH DAILY Estring [facility] [address]-91 2 MG Vaginal Every 3 months Active 1 ring Xigduo XR [facility] [address]-48 10-1000 MG Orally Once a day October 29, 2015 May 26, 2016 Active 1 tablet Wellbutrin XL [facility] 36363619660 150 MG Orally Once a day Active 1 tablet in the morning OneTouch Ultra Test [facility] [address]-88 0 SQ use qd. E65.11 October 08, 2014 Active as directed Tramadol HCl [facility] 69149439177 50 MG Oral Active (Schedule IV Drug) TAKE 1 TABLET BY MOUTH EVERY 8 HOURS NEEDED FOR PAIN Keflex [facility] [address]-10 500 mg Orally Twice a day Feb 28, 2016 Mar 13, 2016 Active 1 capsule Naproxen [facility] [address]-84 500 mg Orally every 12 hrs PRN Feb 28, 2016 Mar 14, 2016 Active 1 tablet as needed Albuterol Sulfate HFA [facility] [address]-26 108 (90 Base) MCG/ACT Inhalation every 4 hrs Apr 17, 2014 Active 2 puffs as needed Hydrochlorothiazide [facility] 29935181429 25 MG Active TAKE 1 TABLET BY MOUTH EVERY DAY Vitamin D (Ergocalciferol) [facility] 76715260028 31271 Orally once per week Active 1 capsule Atorvastatin Calcium [facility] [address]-58 80 MG Orally Once a day Active 1 tablet Osphena [facility] 13769817647 60 MG Oral Active TAKE 1 TABLET [...] 2016 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, 2016 Family history Qualifier Description Comment Date Reported Maternal Grandmother Comment not available Feb 28, 2016 Paternal Grandmother Comment not available Feb 28, 2016 Siblings sister- DM Feb 28, 2016 Maternal Grandfather Comment not available Feb 28, 2016 Children Comment not available Feb 28, 2016 Father alive heart disease, diabetes mellitus Feb 28, 2016 Paternal Grandfather Comment not available Feb 28, 2016 Mother alive diabetes, hypertension Feb 28, 2016 Other: Comment not available Feb 28, 2016 Vital Signs Date/Time: Feb 28, 2016 Weight 273 lbs Height 66 in Cardiac Monitoring Heart Rate 80 /min Blood Pressure Diastolic 78 mm Hg Blood Pressure Systolic 130 mm Hg Summary Purpose eClinicalWorks Submission
--- OUTSIDE RECORDS SUMMARY | 2018-04-20 13:31 | XMS REPORT ---
Author Author Rogers Snider [facility] eClinicalWorks Address Unknown Phone Unavailable Care Team Providers Care It Risk Advisor Name Role Phone Rogers Snider Unavailable Allergies, Adverse Reactions, Alerts Substance Reaction Event Type penicillin Info Not Available Drug Allergy Encounters Encounter Location Date bladder [facility] October 25, 2013 urgent care follow-up [facility] Mar 29, 2014 Unknown [facility] Apr 11, 2014 Peer to Peer [facility] Apr 12, 2014 KNEE PAIN [facility] Mar 07, 2013 RESULTS [facility] Mar 30, 2013 Unknown [facility] Jun 01, [address] [facility] October 03, 2014 1 week follow up [facility] Apr 17, 2014 Test results [facility] Apr CHEST CONGESTION [facility] December 19, 2015 PT SAYS SHE IS HAVING CHEST DISCOMFORT FROM CONGESTION, SHE IS NOT IN DISTRESS [facility] January 23, 2016 ECHO / DOMI [facility] November 01, 2015 TMT / DOMI [facility] November Physical [facility] October 21, 2015 Lab results [facility] October 29, [address] [facility] October 08, [address] [facility] October 09, 2014 Cardiolyte Stress Test [facility] February 05, 2016 Problems Problem Type Condition ICD-9 Code Onset Dates Condition Status Problem Menopausal and female climacteric states N95.1 Active Problem Esophageal reflux K21.9 Active Problem Obesity E66.9 Active Problem Leukocytosis D72.829 Active Problem H/O leukocytosis Z86.2 Active Problem Sleep apnea G47.30 Active Problem History of laparoscopic adjustable gastric banding Z98.84 Active Problem Depressive disorder, not elsewhere classified F32.9 Active Problem Diabetes mellitus with hyperglycemia E11.65 Active Problem Microalbuminuria R80.9 Active Assessment HLD (hyperlipidemia) 272.4 Active Assessment Shortness of breath R06.02 Active Assessment Sleep apnea G47.30 Active Problem Hyperlipidemia, unspecified E78.5 Active Assessment Obesity E66.9 Active Problem Vitamin D deficiency E55.9 Active Medications Medication Code System Code Instructions Start Date End Date Status Dosage OneTouch Lancets [facility] [address]-99 0 in vitro use bid dx: 250.00 October 08, 2014 Active as directed Bydureon [facility] 47535111795 2 MG Subcutaneous Active INJECT 2 MG INTO THE SKIN EVERY 7 DAYS Vitamin D (Ergocalciferol) [facility] 13010184491 00453 Orally once per week Active 1 capsule OneTouch Ultra Test [facility] [address]-64 0 SQ use qd. E65.11 October 08, 2014 Active as directed IBU-200 [facility] [address]-32 200 MG Orally every 6 hrs Active 1 tablet as needed Xigduo XR [facility] [address]-77 10-1000 MG Orally Once a day October 29, 2015 May 26, 2016 Active 1 tablet Tramadol HCl [facility] 58421565887 50 MG Oral Active (Schedule IV Drug) TAKE 1 TABLET BY MOUTH EVERY 8 HOURS NEEDED FOR PAIN Hydrochlorothiazide [facility] 68219395790 25 MG Active TAKE 1 TABLET BY MOUTH EVERY DAY Pantoprazole Sodium [facility] 96279108885 40 MG Oral Active TAKE 1 TABLET BY MOUTH EVERY DAY Osphena [facility] 35071308661 60 MG Oral Active TAKE 1 TABLET BY MOUTH DAILY Lisinopril [facility] [address]-76 10 mg Orally daily Active 1 tablet Gabapentin [facility] [address]-11 300 MG Oral Active take 1 capsule by mouth at bedtime Wellbutrin XL [facility] [address]-35 150 MG Orally Once a day October 21, 2015 Active 1 tablet in the morning Potassium Chloride Gia ER [facility] 62834465095 10 MEQ Oral Active TAKE 1 TABLET BY MOUTH DAILY Voltaren [facility] 96266804371 1 % Transdermal Active APPLY TO PAINFUL REGION OVER BUTTOCK UP TO 2 TIMES A DAY NEEDED. Albuterol Sulfate HFA [facility] [address]-15 108 (90 Base) MCG/ACT Inhalation every 4 hrs Apr 17, 2014 Active 2 puffs as needed GlyBURIDE [facility] 25366843757 2.5 MG Oral Active TAKE 1 TABLET BY MOUTH 2 TIMES DAILY (WITH MEALS) Atorvastatin Calcium [facility] [address]-73 80 MG Orally Once a day Active 1 tablet Estring [facility] [address]-78 2 MG Vaginal Every 3 months Active 1 ring Social History Social History Element Qualifiers Date Reported Tobacco Use: . Are you a: former smoker 1 1/2 years February 05, 2016 Do you have pets? . Status: Yes, Type: dog(s) February 05, 2016 Marital Status: . Arturo Bhakta February 05, 2016 Caffeine intake? . Status: Yes, What type: Coffee, Tea, Soft Drinks January Do you exercise? . Answer: No February 05, 2016 Do you drink alcohol? . 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
--- OUTSIDE RECORDS SUMMARY | 2018-04-20 13:31 | XMS REPORT | Summary of Care ---
Author Author Abigail Arndt Unknown Address [facility] Phone Unavailable Care Team Providers Care Education Supervisor Name Role Phone PEDRITO RAINES M.D. Unavailable Unavailable HARVINDER LYONS M.D. Unavailable Unavailable DARIEN NICHOLSON BURAK Salazar Unavailable Unavailable Unavailable Unavailable Functional Status Name Dates Details Functional status health issues are not documented Status: Name Dates Details Cognitive status health issues are not documented Status: Problems Name Dates Details Diabetes mellitus (250.00, E11.9) Status: Active Essential (primary) hypertension (401.9, I10) Status: Active Hyperlipidemia (272.4, E78.5) Status: Active Acquired spondylolisthesis of lumbosacral region (738.4, M43.17) Status: Active Chronic low back pain (724.2, M54.5) Status: Active Lumbar facet arthropathy (721.3, M12.88) Status: Active Medial epicondylitis of left elbow (726.31, M77.02) Status: Active Medications Name Dates Details MetFORMIN HCl - 500 MG Oral Tablet TAKE 1 TABLET DAILY. R.N. Active Lisinopril TABS * Refills: 0 R.N. Active ORAL COMPOUND MEDICATION Pain Cream: Gabapentin3% Baclofen3% Bupivacaine3% Menthol3% 360 grams total , Apply 2-3 pump(s) to the affected area(s) as needed,Qty:1 pump * Quantity: 360 Refills: 0 HARVINDER LYONS M.D. * Start : 03-Feb-2017 Active Meloxicam 15 MG Oral Tablet TAKE 1 TABLET DAILY. * Quantity: 30 Refills: 1 PEDRITO RAINES M.D. * Start : 06-May-2017 Active Allergies and Adverse Reactions Name Dates Details No Known Drug Allergies (Allergy) Status: Active Past Medical History Name Dates Details History of Diabetes mellitus (250.00, E11.9) Status: Resolved History of essential hypertension (V12.59, Z86.79) Status: Resolved History of gallbladder disease (V12.79, Z87.19) Status: Resolved History of hyperlipidemia (V12.29, Z86.39) Status: Resolved History of pneumonia (V12.61, Z87.01) Status: Resolved Procedures Procedure Dates Details History of Tonsillectomy Completed History of Hysterectomy Completed History of Cholecystectomy Completed Immunization Name Dates Details Immunizations not documented Family History Name Dates Details Family history of Cancer Status: Active Family history of Hypertension (V17.49) Status: Active Name Dates Details Family history of Heart Disease (V17.49) Status: Active Social History Name Dates Details Unknown if ever smoked Vital Signs Date Test Result Details No Known Vitals to report Results Date Description Value Details Results not documented Plan of Care Name Dates Details Planned Observations Planned Goals not documented Planned Encounters Appointment; PEDRITO RAINES M.D. On: 14-Jun-2017 10:15 Instructions Name Dates Details Instructions not documented Encounters Appointment; HARVINDER LYONS M.D. Encounter Diagnosis: Problem not documented On: 03-Feb-2017 7:45 Appointment; HARVINDER LYONS M.D. Encounter Diagnosis: Problem not documented On: 18-Feb-2017 9:00 Appointment; HARVINDER LYONS M.D. Encounter Diagnosis: Problem not documented On: 25-Mar-2017 10:15 Appointment; PEDRITO RAINES M.D. Encounter Diagnosis: Problem not documented On: 03-May-2017 10:15
== END | disposition home or self-care (01) ==
LOC: OR 13:38
PROVIDERS: ATTEND Internal Medicine Gastroenterology
DX: Z12.11 Encounter for screening for malignant neoplasm of colon (principal); D12.4 Benign neoplasm of descending colon; K29.70 Gastritis, unspecified, without bleeding; K44.9 Diaphragmatic hernia without obstruction or gangrene; K31.89 Other diseases of stomach and duodenum; K57.30 Diverticulosis of large intestine without perforation or abscess without bleeding; K64.8 Other hemorrhoids; R19.7 Diarrhea, unspecified; Z98.84 Bariatric surgery status; E11.9 Type 2 diabetes mellitus without complications; I10 Essential (primary) hypertension; G47.33 Obstructive sleep apnea (adult) (pediatric); E66.01 Morbid (severe) obesity due to excess calories; Z79.84 Long term (current) use of oral hypoglycemic drugs; Z68.41 Body mass index [BMI] 40.0-44.9, adult; Z90.49 Acquired absence of other specified parts of digestive tract; Z80.0 Family history of malignant neoplasm of digestive organs
CPT/HCPCS: 36415; 43239; 45384; 82948; J2250

== ENCOUNTER → 2019-06-27 | Day surgery (SDC) | payer BC ==
[~2019-06-27] MED LIST changes: -FENTANYL CITRATE/PF 100MCG/2 ML INJ ONE; -MIDAZOLAM HCL 2 MG/2 ML VIAL ONE; +PANTOPRAZOLE SO20 MG PO
[2019-06-27 10:30] VITALS: BP 124/82
--- OUTSIDE RECORDS SUMMARY | 2019-07-07 10:20 | XMS REPORT ---
[facility] Address Unknown Phone Unavailable Care Team Providers Care Claims Technician Name Role Phone Unavailable Unavailable Payers Payer Name Policy Type Policy Number Effective Date Expiration Date Problems This patient has no known problems. Allergies, Adverse Reactions, Alerts Allergy Name Allergy Type Status Severity Reaction(s) Onset Date Inactive Date Treating Clinician Comments No Known Allergies DA Active U 2017-08-18 00:00:00 Medications This patient has no known medications. Encounters Start Date/Time End Date/Time Encounter Type Admission Type Attending Clinicians Care Facility Care Department Encounter ID 2019-04-07 08:53:00 2019-04-07 08:53:00 Outpatient [id number] Results Test Description Test Time Test Comments Text Results Atomic Results Result Comments GLUBED 2019-04-24 08:43:00 GLUBED (test code=GLUBED) 107 mg/dL 74-106 Performed by certified bench press operator at [facility] CBC W/AUTO [id number] 10:42:00* Test Item Value Reference Range Comments WHITE BLOOD CELL (test code=WBC) 11.0 K/mm3 4.5-12.5 RED BLOOD CELL (test code=RBC) 5.05 mill/mm3 3.7-5.2 HEMOGLOBIN (test code=HGB) 14.8 gram/dL 11.5-15.5 HEMATOCRIT (test code=HCT) 45.7 % 36.0-46.0 MEAN CELL VOLUME (test code=MCV) 90.5 fL 80-98 MEAN CELL HGB (test code=MCH) 29.3 picogram 27.0-33.0 MEAN CELL HGB CONCETRATION (test code=MCHC) 32.4 gram/dL 33.0-36.0 RED CELL DISTRIBUTION WIDTH (test code=RDW) 13.5 % 11.6-16.2 RED CELL DISTRIBUTION WIDTH SD (test code=RDW-SD) 44.2 fL 37.0-51.0 PLATELET COUNT (test code=PLT) 259 K/mm3 150-450 MEAN PLATELET VOLUME (test code=MPV) 10.6 fL 6.7-11.0 NEUTROPHIL % (test code=NT%) 65.8 % 39.0-69.0 IMMATURE GRANULOCYTE % (test code=IG%) 1.5 % 0.0-5.0 LYMPHOCYTE % (test code=LY%) 23.9 % 25.0-55.0 MONOCYTE % (test code=MO%) 7.0 % 0.0-10.0 EOSINOPHIL % (test code=EO%) 1.3 % 0.0-5.0 BASOPHIL % (test code=BA%) 0.5 % 0.0-1.0 NUCLEATED RBC % (test code=NRBC%) 0.0 % 0-0 NEUTROPHIL # (test code=NT#) 7.21 K/mm3 1.8-7.7 IMMATURE GRANULOCYTE # (test code=IG#) 0.16 x10 3/uL 0-0.03 LYMPHOCYTE # (test code=LY#) 2.62 K/mm3 1.0-5.0 MONOCYTE # (test code=MO#) 0.77 K/mm3 0-0.8 EOSINOPHIL # (test code=EO#) 0.14 K/mm3 0.0-0.5 BASOPHIL # (test code=BA#) 0.06 K/mm3 0.0-0.2 NUCLEATED RBC # (test code=NRBC#) 0.00 K/mm3 0.0-0.1 MANUAL DIFF REQUIRED (test code=MDIFF) NO COMPREHENSIVE METABOLIC [id number] 10:37:00* Test Item Value Reference Range Comments SODIUM (test code=NA) 141 mmol/L 136-145 POTASSIUM (test code=K) 3.8 mmol/L 3.5-5.1 CHLORIDE (test code=CL) 105.0 mmol/L 98-107 CARBON DIOXIDE (test code=CO2) 28.0 mmol/L 21-32 ANION GAP (test code=GAP) 11.8 10-20 GLUCOSE (test code=GLU) 130 mg/dL 74-106 BLOOD UREA NITROGEN (test code=BUN) 15 mg/dL 7-18 GLOMERULAR FILTRATION RATE (test code=GFR) > 60 mL/min >=60 Estimated GFR by using Modified MDRD formula.Chronic kidney disease is defined as either kidney damageor GFR <60 mL/min/1.73 m2 for >3 months. CREATININE (test code=CREAT) 0.70 mg/dL 0.55-1.02 Note change in reference range due to change in reagent. BUN/CREATININE RATIO (test code=BUN/CREA) 20.4 10-20 TOTAL PROTEIN (test code=PROT) 6.7 gram/dL 6.4-8.2 ALBUMIN (test code=ALB) 3.7 g/dL 3.4-5.0 GLOBULIN (test code=GLOB) 3.0 gram/dL 2.7-4.2 ALBUMIN/GLOBULIN RATIO (test code=A/G) 1.2 0.75-1.50 CALCIUM (test code=CA) 9.1 mg/dL 8.5-10.1 BILIRUBIN TOTAL (test code=BILT) 0.40 mg/dL 0.0-1.0 SGOT/AST (test code=AST) 9 IUnit/L 15-37 SGPT/ALT (test code=ALT) 18 IUnit/L 12-78 ALKALINE PHOSPHATASE TOTAL (test code=ALKP) 91 IUnit/L 45-117 Note change in reference range due to change in reagent. CBC W/AUTO [id number] 10:35:00* Test Item Value Reference Range Comments WHITE BLOOD CELL (test code=WBC) K/mm3 4.5-12.5 RED BLOOD CELL (test code=RBC) mill/mm3 3.7-5.2 HEMOGLOBIN (test code=HGB) 14.8 gram/dL 11.5-15.5 HEMATOCRIT (test code=HCT) 45.7 % 36.0-46.0 MEAN CELL VOLUME (test code=MCV) fL 80-98 MEAN CELL HGB (test code=MCH) picogram 27.0-33.0 MEAN CELL HGB CONCETRATION (test code=MCHC) gram/dL 33.0-36.0 RED CELL DISTRIBUTION WIDTH (test code=RDW) % 11.6-16.2 RED CELL DISTRIBUTION WIDTH SD (test code=RDW-SD) fL 37.0-51.0 PLATELET COUNT (test code=PLT) K/mm3 150-450 MEAN PLATELET VOLUME (test code=MPV) fL 6.7-11.0 NEUTROPHIL % (test code=NT%) % 39.0-69.0 IMMATURE GRANULOCYTE % (test code=IG%) % 0.0-5.0 LYMPHOCYTE % (test code=LY%) % 25.0-55.0 MONOCYTE % (test code=MO%) % 0.0-10.0 EOSINOPHIL % (test code=EO%) % 0.0-5.0 BASOPHIL % (test code=BA%) % 0.0-1.0 NEUTROPHIL # (test code=NT#) K/mm3 1.8-7.7 LYMPHOCYTE # (test code=LY#) K/mm3 1.0-5.0 MONOCYTE # (test code=MO#) K/mm3 0-0.8 EOSINOPHIL # (test code=EO#) K/mm3 0.0-0.5 BASOPHIL # (test code=BA#) K/mm3 0.0-0.2 COMPREHENSIVE METABOLIC [id number] 10:31:00* Test Item Value Reference Range Comments SODIUM (test code=NA) 141 mmol/L 136-145 POTASSIUM (test code=K) 3.8 mmol/L 3.5-5.1 CHLORIDE (test code=CL) 105.0 mmol/L 98-107 CARBON DIOXIDE (test code=CO2) mmol/L 21-32 ANION GAP (test code=GAP) 10-20 GLUCOSE (test code=GLU) mg/dL 74-106 BLOOD UREA NITROGEN (test code=BUN) mg/dL 7-18 GLOMERULAR FILTRATION RATE (test code=GFR) mL/min >=60 CREATININE (test code=CREAT) mg/dL 0.55-1.02 BUN/CREATININE RATIO (test code=BUN/CREA) 10-20 TOTAL PROTEIN (test code=PROT) gram/dL 6.4-8.2 ALBUMIN (test code=ALB) g/dL 3.4-5.0 GLOBULIN (test code=GLOB) gram/dL 2.7-4.2 ALBUMIN/GLOBULIN RATIO (test code=A/G) 0.75-1.50 CALCIUM (test code=CA) mg/dL 8.5-10.1 BILIRUBIN TOTAL (test code=BILT) mg/dL 0.0-1.0 SGOT/AST (test code=AST) IUnit/L 15-37 SGPT/ALT (test code=ALT) IUnit/L 12-78 ALKALINE PHOSPHATASE TOTAL (test code=ALKP) IUnit/L 45-117 - XR SHOULDER 2 + V [id number] 08:07:00 Name: HUY CANTUIA JAD [facility] : 1960 Age/S:58 /F [address] [place] [address] Unit#:[id number] Loc: Marcial Goyal [address] Phys: Yared Du MD Dis Date: PHONE #: [phone] Status: PRE ER FAX #: [phone] Exam Date: 12/18/2018 Reason: Fall EXAMS: CPT CODE: [id number] XR SHOULDER 2 + V RT 10715 HISTORY: Fall and pain. COMPARISON: None available. 3 views of the right shoulder: No acute fracture or dislocation. Narrowed AC joint. Sternoclavicular and shoulder joints are unremarkable. Glenoid, coracoid and scapula are normal. Bone mineralization and soft tissues are normal. IMPRESSION: No acute fracture or dislocation. Narrowed AC joint. at 0807 Reported and signed by: Rehan Zuniga M.D. CC: Yared Du MD; Basil Jean Technologist: Kelin Fernández Trnscrpt Data: 12/18/2018 (0807) [email or web address] Orig Print D/T: S: 12/18/2018 (0810) PAGE 1 Signed Report - XR HIP W/PEL UNI 2+V [id number] 09:35:00 [facility] 1960 Age/S:58 /F [address] [place] [address] Unit#:[id number] Loc: Marcial Goyal [address] Phys: Yared Du MD Dis Date: PHONE #: [phone] Status: REG ER FAX #: [phone] Exam Date: 08/08/2018 Reason: pain EXAMS: CPT CODE: [id number] XR HIP W/PEL UNI 2+[place] [address] HISTORY: Sciatic pain on the left. COMPARISON: None available. 3 views of the left hip: No acute fracture or dislocation. Moderately narrowed hip joint. No AVN. Acetabulum is unremarkable. Trabecular pattern and mineralization are normal. Soft tissues are normal. Pelvic ring appears intact on a single view. Additional views would be of value. Symphysis is well opposed. SI joints are preserved. IMPRESSION: No acute fracture or dislocation. Hip joint is markedly narrowed. No AVN. at 0935 Reported and signed by: Rehan Zuniga M.D. CC: Yared Du MD Technologist: Kelin Fernández Trnscrpt Data: 08/08/2018 (0935) [email or web address] Orig Print D/T: S: 08/08/2018 (0938) PAGE 1 Signed Report
--- OUTSIDE RECORDS SUMMARY | 2019-07-07 10:20 | XMS REPORT | Summary of Care ---
Author Author Carlos NAVARRETE, [facility] Unknown Address Unknown Phone Unavailable Care Team Providers Care Assistant Guest Services Manager Name Role Phone PEDRITO RAINES M.D. Unavailable Unavailable HARVINDER LYONS M.D. Unavailable Unavailable VALENTIN SZYMANSKI M.D. Unavailable Unavailable BURAK LEDEZMA DO Unavailable Unavailable NESSA DIETRICH AL, VALENTIN Unavailable Unavailable Unavailable Unavailable Functional Status Name [...] M54.5) Status: Active Lumbar facet arthropathy (721.3, M47.816) Status: Active Medial epicondylitis of left elbow (726.31, M77.02) Status: Active Right hip pain (719.45, M25.551) Status: Active Hip pain, left (719.45, M25.552) Status: Active Medications Name Dates Details metFORMIN HCl - 500 MG Oral Tablet TAKE 1 TABLET DAILY. Active Lisinopril TABS * Refills: 0 Active ORAL COMPOUND MEDICATION Pain Cream: Gabapentin3% Baclofen3% Bupivacaine3% Menthol3% 360 grams total ,Roberta ly 2-3 pump(s) to the affected area(s) as needed,Qty:1 pump * Quantity: 360 Refills: 0 HARVINDER LYONS M.D. * Start : 03-Feb-2017 Active Meloxicam 15 MG Oral Tablet TAKE 1 TABLET DAILY. * Quantity: 30 Refills: 1 PEDRITO RAINES M.D. * Start : 06-May-2017 Active methylPREDNISolone 4 MG Oral Tablet Therapy Pack Take as directed on package insert * Quantity: 21 Refills: 0 VALENTIN SZYMANSKI M.D. * Start : 13-Feb-2019 Active 21 Tablet Pack Allergies and Adverse Reactions Name Dates Details [...] Details Planned Observations Planned Goals not documented Interventions Provided Medication Changes* methylPREDNISolone 4 MG Oral Tablet Therapy Pack - Start Instructions Name Dates Details Instructions not documented Encounters Appointment; HARVINDRE LYONS M.D. Encounter Diagnosis: Problem not documented On: 18-Feb-2017 9:00 Appointment; HARVINDER LYONS M.D. Encounter Diagnosis: Problem not documented On: 25-Mar-2017 10:15 Appointment; PEDRITO RAINES M.D. Encounter Diagnosis: Problem not documented On: 03-May-2017 10:15 Appointment; PEDRITO RAINES M.D. Encounter Diagnosis: Problem not documented On: 14-Jun-2017 10:15 Appointment; VALENTIN SZYMANSKI M.D. Encounter Diagnosis: Problem not documented On: 23-Jun-2017 11:00 Appointment; VALENTIN SZYMANSKI M.D. Encounter Diagnosis: Problem not documented On: 01-Jul-2017 8:00 Appointment; VALENTIN SZYMANSKI M.D. Encounter Diagnosis: Problem not documented On: 01-Feb-2018 9:00 Appointment; VALENTIN SZYMANSKI M.D. Encounter Diagnosis: Problem not documented On: 01-Feb-2018 9:30 Appointment; VALENTIN SZYMANSKI M.D. Encounter Diagnosis: Problem not documented On: 09-Feb-2018 16:00 Appointment; VALENTIN SZYMANSKI M.D. Encounter Diagnosis: Problem not documented On: 25-Mar-2018 14:00 Appointment; VALENTIN SZYMANSKI M.D. Encounter Diagnosis: Problem not documented On: 07-Apr-2018 10:30 Appointment; VALENTIN SZYMANSKI M.D. Encounter Diagnosis: Problem not documented On: 13-Apr-2018 12:00 Appointment; VALENTIN SZYMANSKI M.D. Encounter Diagnosis: Problem not documented On: 26-May-2018 9:30 Appointment; VALENTIN SZYMANSKI M.D. Encounter Diagnosis: Problem not documented On: 23-Jun-2018 8:30 Appointment; VALENTIN SZYMANSKI M.D. Encounter Diagnosis: Problem not documented On: 22-Aug-2018 14:00 Appointment; VALENTIN SZYMANSKI M.D. Encounter Diagnosis: Problem not documented On: 16-Jan-2019 14:30 Appointment; VALENTIN SZYMANSKI M.D. Encounter Diagnosis: Problem not documented On: 13-Feb-2019 15:00
== END | disposition home or self-care (01) ==
LOC: OR 07:14
PROVIDERS: ATTEND Internal Medicine Gastroenterology
DX: K31.89 Other diseases of stomach and duodenum (principal); K31.7 Polyp of stomach and duodenum; K29.60 Other gastritis without bleeding; K44.9 Diaphragmatic hernia without obstruction or gangrene; Z98.84 Bariatric surgery status; I10 Essential (primary) hypertension; E11.9 Type 2 diabetes mellitus without complications; Z01.810 Encounter for preprocedural cardiovascular examination; Z79.84 Long term (current) use of oral hypoglycemic drugs
CPT/HCPCS: 36415; 43239; 43251; 82948; 93005; J2704